=== PATIENT | female | born 1970 | race Caucasian/White ===

== ENCOUNTER 2025-05-08 14:51 | Outpatient (AMB) | payer OTHER, SELFPAY ==
--- NOTE | 2025-05-08 15:09 | A.SPINEOV_ITS ---
Vital Signs 05/08/25 15:21 Height 5 ft 4 in Weight 145 lb BMI 24.9 Intake Visit Reasons: R sciatic pain Intake Note: Ms. Pedro is here today c/o Right sided sciatica pain. Water Pipe Installer Required: No Allergies ciprofloxacin (From Cipro) Allergy (Severe, Verified 05/08/25 15:22) Anaphylaxis acetaminophen (From Percocet) Allergy (Intermediate, Verified 05/08/25 15:22) Rash codeine (Codeine) Allergy (Intermediate, Verified 05/08/25 15:22) VOMITING ibuprofen Allergy (Intermediate, Verified 05/08/25 15:22) Heartburn oxycodone (From Percocet) Allergy (Intermediate, Verified 05/08/25 15:22) Rash Physical Exam Vital Signs: BMI result Body Mass Index 24.9 Assessment & Plan Assessment & Plan (1) Status post lumbar and lumbosacral fusion by anterior technique: Code(s): Z98.1 - Arthrodesis status Category: Surgical Plan Dear colleague, On 05/08/2025 I saw Rabia Le for ongoing bilateral leg pain despite undergoing an anterior lumbar interbody fusion and posterior decompression by Dr. Thurston. For an extensive medical history I refer to the note of LISSA Driscoll of 07/04/2024. This patient developed right leg pain with vibrations and out drop foot. An MRI of the lumbar spine at [facility] was read as having severe right L5 foraminal stenosis and a synovial cyst. She was seen in our office in the MRI was reviewed and it was determined that the mild(not severe) abnormalities could not be the reason for her symptoms. She went on to a 2nd opinion and underwent an anterior lumbar interbody fusion L5-S1 without success. Preoperatively, he already developed symptoms in her left leg with the MRI showing absolutely no abnormalities on the left side. She comes in with a request if there is any additional surgeries to be done for her symptoms to address her increasing bilateral symptoms. A postoperative MRI shows status post L5-S1 ALIF and no signs of nerve compression or central stenosis. I explained to her that I would not have offered any surgical intervention to start with as bilateral leg pain can not be explained from the MRI. There is also no reason to offer more surgery. Clinically, her symptoms sound more like a polyneuropathy. She will return to her neurologist in his scheduled to undergo another EMG. Unfortunately, I can not help the patient. I spent 30 minutes in his consult reviewing imaging and providing my medical opinion. Douglas Rosenthal MD, PhD Spine Fellowship Trained Neurosurgeon Director, [facility] Coding Level of Care Code Est Pt Level 4 (34175) Diagnoses Status post lumbar and lumbosacral fusion by anterior technique Z98.1
[2025-05-08 15:21] VITALS: BMI 24.9
--- OUTSIDE RECORDS SUMMARY | 2025-05-08 16:33 | XMS_ITS | Encounter Summary ---
Author Organization [facility] Address [address] [facility] [address] [place] [address] Phone Care Team Providers Care Food Service Coordinator Name Role Phone Julian Duncan MD Unavailable Champ Coombs MD Unavailable [phone] Nicola Davis MD Primary Care Provid er Keyla Dorsey PA-C Primary Care Provider [phone] Encounter Details Date Type Department Care Team (Late st Contact Info) Description 06/26/2019 Ancillary Orders [facility],Outside [facility] [address] [place] [address] System, Provider Not In, [place] [address] Social History Tobacco Use Types Packs/Day Years Used Date Smoking Tobacco: Never Smokeless Tobacco: Never Alcohol Use Standard Drinks/Week Comments Yes 3 (1 standard drink = 0.6 oz pur e alcohol) the weekends Comments Unknown Sex and Gender Information Value Date Recorded Sex Assigned at Female 12/14/2019 12:18 PM EDT Legal Sex Female 7:17 PM EST Gender Identity Female 12/14/2019 12:18 PM EDT Sexual Orientation Straight 12/14/2019 12 :18 PM EDT documented as of this encounter Plan of Treatment Upcoming Encounters Date Type Department Care Team (Late st Contact Info) Description 05/20/2024 Procedure Pass [facility] - [address] [place] [address] 05/15/2025 1:45 PM EDT Appointment [address] [place] [address] Keyla Dorsey PA-C [address] [place] [address] [email or web address] 06/09/2025 9:30 AM EST Procedure visit [facility] Neurology [address] [place] [address] Gelacio Thurston MD [address] [place] [address] Arnaldo Dasilva MD 22 [facility], 2nd [place] [address] [email or web address] documented as of this encounter Results * XR Lower Extremity Outside (No Interpretation) (09/04/2018 12:00 AM EST) Narrative SYSTEMGENERATED, DOCUMENTATION - 06/26/2019 1:15 PM EST This study is for PACS storage only and not for interpretation. us Provider Not In System PhD IMG OUTSIDE IMAGING W /OUT INTERPRETATION Final Result * XR Lower Extremity Outside (No Interpretation) (10/05/2017 12:00 AM EDT) Narrative SYSTEMGENERATED, DOCUMENTATION - 06/26/2019 1:14 PM EST This study is for PACS storage only and not for interpretation. us Provider Not In System PhD IMG OUTSIDE IMAGING W /OUT INTERPRETATION Final Result documented in this encounter Visit Diagnoses Not on filedocumented in this encounter Additional Health Concerns Infection Onset Date Last Indicated Resolved Time CoV-Risk 07/31/2024 07/31/2024 08/11/2024 1:22 AM EST CoV-Risk 08/27/2024 08/27/2024 09/07/2024 1:21 AM EST documented as of this encounter Care Teams Food Service Coordinator Relationship Specialty Start Date End Date Nicola Davis MD 35 [facility] 1 [place] [phone] PCP - General Pediatrics 10/15/17 05/19/24 Keyla Dorsey PA-C [address] [place] [address] [email or web address] PCP - General Physician Readers' Advisory Service Librarian 05/20/24 Julian Duncan MD [address] [place] [address] [email or web address] Historical LMR Provider 11/27/14 07/23/21 Champ Coombs MD [address] [place] [address] Historical LMR Provider 11/27/14 2 documented as of this encounter Additional Source Comments The information contained in this document represents components of the legal health record. It is not the complete legal health record.[facility]
--- OUTSIDE RECORDS SUMMARY | 2025-05-08 16:33 | XMS_ITS | Encounter Summary ---
Author Organization [facility] Address [address] [place] [address] Phone Care Team Providers Care Capability Lead Name Role Phone Julian Duncan MD Unavailable Champ Coombs MD Unavailable [phone] Nicola Davis MD Primary Care Provid er Keyla Dorsey PA-C Primary Care Provider Encounter Details Date Type Department Care Team (Late st Contact Info) Description 10/14/2020 Procedure Pass OR Admitting Dept - Virtual Department [address] [place] [address] Social History Tobacco Use Types Packs/Day Years Used Date Smoking Tobacco: Never Smokeless Tobacco: Never Alcohol Use Standard Drinks/Week Comments Yes 3 (1 standard drink = 0.6 oz pur e alcohol) the weekends Comments No Sex and Gender Information Value Date Recorded Sex Assigned at Female 12/14/2019 12:18 PM EDT Legal Sex Female 7:17 PM EST Gender Identity Female 12/14/2019 12:18 PM EDT Sexual Orientation Straight 12/14/2019 12 :18 PM EDT documented as of this encounter Functional Status * Calculated C-SSRS Risk Score (Lifetime/Recent) Answer Date of Assessment Author No Risk Indicated 10/16/2020 3:00 PM EDT Jackie Caro RN * [place] Suicide Severity Rating Scale (Screener/Recent Self-Report) Question Answer Date of Assessment Author 1. Wish to be (Past 1 Month) No 021 3:00 PM EDT Jackie Caro, FAYE 2. Non-Specific Active Suici floridalma Thoughts (Past 1 Month) No 10/16/2020 3:00 PM EDT Ashok Caro, FAYE 6. Suicidal Behavior (Lifetime) No 3:00 PM EDT Jackie Caro, FAYE documented as of this encounter Plan of Treatment Upcoming Encounters Date Type Department Care Team (Late st Contact Info) Description 05/20/2024 Procedure Pass [address] [place] [address] 05/15/2025 1:45 PM EDT Appointment [address] [place] [address] Keyla Dorsey PA-C [address] [place] [address] 06/09/2025 9:30 AM EST Procedure visit [facility] Neurology [address] [place] [address] Gelacio Thurston MD [address] [place] [address] Arnaldo Dasilva MD 22 [facility], 2nd [place] [address] documented as of this encounter Visit Diagnoses Not on filedocumented in this encounter Additional Health Concerns Infection Onset Date Last Indicated Resolved Time CoV-Risk 07/31/2024 07/31/2024 08/11/2024 1:22 AM EST CoV-Risk 08/27/2024 08/27/2024 09/07/2024 1:21 AM EST documented as of this encounter Care Teams Capability Lead Relationship Specialty Start Date End Date Nicola Davis MD 35 [facility] [address] [place] [phone] PCP - General Pediatrics 10/15/17 05/19/24 Keyla Dorsey PA-C [address] [place] [address] [email or web address] PCP - General Physician Prawn Trawler Hand 05/20/24 Julian Duncan MD [address] [place] [address] [email or web address] Historical LMR Provider 11/27/14 07/23/21 Champ Coombs MD [address] [place] [address] Historical LMR Provider 11/27/14 2 documented as of this encounter Additional Source Comments The information contained in this document represents components of the legal health record. It is not the complete legal health record.[facility]
--- OUTSIDE RECORDS SUMMARY | 2025-05-08 16:33 | XMS_ITS | Encounter Summary ---
Author Organization [facility] Address [address] [facility] [address] [place] [address] Phone Care Team Providers Care Railroad Brake Repairer Name Role Phone Nicola Davis MD Primary Care Provid er Keyla Dorsey PA-C Primary Care Provider [phone] Encounter Details Date Type Department Care Team (Late st Contact Info) Description 07/30/2023 Procedure Pass OR Admitting Dept - Virtual Department [address] [place] [address] Social History Tobacco Use Types Packs/Day Years Used Date Smoking Tobacco: Never Smokeless Tobacco: Never Alcohol Use Standard Drinks/Week Comments Yes 2 (1 standard drink = 0.6 oz pur e alcohol) the weekends Education Answer Date Recorded Are you interested in more education? Not on rossana e 11/09/2022 Are you concerned about learning? Not on file 11/09/2022 No 11/09/2022 No 11/09/2022 Digital Access Answer Date Recorded No 12/05/2022 No 12/05/2022 Reliable internet access at home? Not on file 12/05/2022 Device with a working camera? Not on file Comments No Sex and Gender Information Value Date Recorded Sex Assigned at Female 12/14/2019 12:18 PM EDT Legal Sex Female 7:17 PM EST Gender Identity Female 12/14/2019 12:18 PM EDT Sexual Orientation Straight 12/14/2019 12 :18 PM EDT documented as of this encounter Plan of Treatment Upcoming Encounters Date Type Department Care Team (Late st Contact Info) Description 05/20/2024 Procedure Pass [address] [place] [address] 05/15/2025 1:45 PM EDT Appointment [address] [place] [address] Keyla Dorsey PA-C 40 [place] [address] 06/09/2025 9:30 AM EST Procedure visit [facility] Neurology [address] [place] [address] Gelacio Thurston MD [address] [place] [address] Arnaldo Dasilva MD [address] [place] [address], 2[address] [place] [address] documented as of this encounter Visit Diagnoses Not on filedocumented in this encounter Additional Health Concerns Infection Onset Date Last Indicated Resolved Time CoV-Risk 07/31/2024 07/31/2024 08/11/2024 1:22 AM EST CoV-Risk 08/27/2024 08/27/2024 09/07/2024 1:21 AM EST documented as of this encounter Care Teams Railroad Brake Repairer Relationship Specialty Start Date End Date Nicola Davis MD 35 [facility] [address] [place] [address] PCP - General Pediatrics 10/15/17 05/19/24 Keyla Dorsey PA-C [address] [place] [address] PCP - General Physician Deep Fat Cook Fry 05/20/24 documented as of this encounter Additional Source Comments The information contained in this document represents components of the legal health record. It is not the complete legal health record.[facility]
--- OUTSIDE RECORDS SUMMARY | 2025-05-08 16:33 | XMS_ITS | Encounter Summary ---
Author Organization [facility] Address [address] [facility] [address] [place] [address] Phone Care Team Providers Care Roll Forger Name Role Phone Julian Duncan MD Unavailable Champ Coombs MD Unavailable [phone] Nicola Davis MD Primary Care Provid er Keyla Dorsey PA-C Primary Care Provider Encounter Details Date Type Department Care Team (Late st Contact Info) Description 02/22/2021 Procedure Pass [facility], Ct Scan [address] [address] Social History Tobacco Use Types Packs/Day Years Used Date Smoking Tobacco: Never Smokeless Tobacco: Never Alcohol Use Standard Drinks/Week Comments Yes 1 (1 standard drink = 0.6 oz pur [...] Contact Info) Description 05/20/2024 Procedure Pass [facility] - [address] [place] [address] 05/15/2025 1:45 PM EDT Appointment [address] [place] [address] Keyla Dorsey PA-C [address] [place] [address] [email or web address] 06/09/2025 9:30 AM EST Procedure visit [facility] Neurology [address] [place] [address] Gelacio Thurston MD [address] [place] [address] Arnaldo Dasilva MD [address] [place] [address], 2[address] [place] [address] [email or web address] documented as of this encounter Visit Diagnoses Not on filedocumented in this encounter Additional Health Concerns Infection Onset Date Last Indicated Resolved Time CoV-Risk 07/31/2024 07/31/2024 08/11/2024 1:22 AM EST CoV-Risk 08/27/2024 08/27/2024 09/07/2024 1:21 AM EST documented as of this encounter Care Teams Roll Forger Relationship Specialty Start Date End Date Nicola Davis MD [address] [phone] PCP - General Pediatrics 10/15/17 05/19/24 Keyla Dorsey PA-C [address] [place] [address] [email or web address] PCP - General Physician Primer Press Operator 05/20/24 Julian Duncan MD [address] [place] [address] [email or web address] Historical LMR Provider 11/27/14 07/23/21 Champ Coombs MD [address] [place] [address] Historical LMR Provider 11/27/14 2 documented as of this encounter Additional Source Comments The information contained in this document represents components of the legal health record. It is not the complete legal health record.[facility]
--- OUTSIDE RECORDS SUMMARY | 2025-05-08 16:33 | XMS_ITS | Encounter Summary ---
Author Organization [facility] Address [address] [facility] [address] [place] [address] Phone Care Team Providers Care Potato Inspector Name Role Phone Julian Duncan MD Unavailable Champ Coombs MD Unavailable [phone] Nicola Davis MD Primary Care Provid er Keyla Dorsey PA-C Primary Care Provider Encounter Details Date Type Department Care Team (Late st Contact Info) Description 10/20/2020 Procedure Pass OR Admitting Dept - Virtual Department [address] [place] [address] Social History Tobacco Use Types Packs/Day Years [...] st Contact Info) Description 05/20/2024 Procedure Pass [facility] - [address] [place] [address] 05/15/2025 1:45 PM EDT Appointment [address] [place] [address] Keyla Dorsey PA-C [address] [place] [address] [email or web address] 06/09/2025 9:30 AM EST Procedure visit [facility] Neurology 22 [place] [address] Gelacio Thurston MD [address] [place] [address] Arnaldo Dasilva MD [address] [place] [address], 2[address] [place] [address] [email or web address] documented as of this encounter Visit Diagnoses Not on filedocumented in this encounter Additional Health Concerns Infection Onset Date Last Indicated Resolved Time CoV-Risk 07/31/2024 07/31/2024 08/11/2024 1:22 AM EST CoV-Risk 08/27/2024 08/27/2024 09/07/2024 1:21 AM EST documented as of this encounter Care Teams Potato Inspector Relationship Specialty Start Date End Date Nicola Davis MD [address] [place] [phone] PCP - General Pediatrics 10/15/17 05/19/24 Keyla Dorsey PA-C [address] [place] [address] [email or web address] PCP - General Physician Wearing Apparel Folder 05/20/24 Julian Duncan MD [address] [place] [address] [email or web address] Historical LMR Provider 11/27/14 07/23/21 Champ Coombs MD [address] [place] [address] Historical LMR Provider 11/27/14 2 documented as of this encounter Additional Source Comments The information contained in this document represents components of the legal health record. It is not the complete legal health record.[facility]
--- OUTSIDE RECORDS SUMMARY | 2025-05-08 16:33 | XMS_ITS | Encounter Summary ---
Author Organization [facility] Address [address] [facility] [address] [place] [address] Phone Care Team Providers Care Billing Auditor Name Role Phone Julian Duncan MD Unavailable Champ Coombs MD Unavailable [phone] Nicola Davis MD Primary Care Provid er Keyla Dorsey PA-C Primary Care Provider Encounter Details Date Type Department Care Team (Late st Contact Info) Description 07/03/2019 Procedure Pass OR Admitting Dept - Virtual Department [address] [place] [address] Social History Tobacco Use Types Packs/Day Years [...] st Contact Info) Description 05/20/2024 Procedure Pass [facility] - [address] [place] [address] 05/15/2025 1:45 PM EDT Appointment [address] [place] [address] Keyla Dorsey PA-C [address] [place] [address] [email or web address] 06/09/2025 9:30 AM EST Procedure visit [facility] Neurology 22 [place] [address] Gelacio Thurston MD [address] [place] [address] Arnaldo Dasilva MD [address] [place] [address], 2nd [place] [address] [email or web address] documented as of this encounter Visit Diagnoses Not on filedocumented in this encounter Additional Health Concerns Infection Onset Date Last Indicated Resolved Time CoV-Risk 07/31/2024 07/31/2024 08/11/2024 1:22 AM EST CoV-Risk 08/27/2024 08/27/2024 09/07/2024 1:21 AM EST documented as of this encounter Care Teams Billing Auditor Relationship Specialty Start Date End Date Nicola Davis MD [address] [place] [phone] PCP - General Pediatrics 10/15/17 05/19/24 Keyla Dorsey PA-C 40 [place] [address] [email or web address] PCP - General Physician Form Setter 05/20/24 Julian Duncan MD [address] [place] [address] [email or web address] Historical LMR Provider 11/27/14 07/23/21 Champ Coombs MD [address] [place] [address] Historical LMR Provider 11/27/14 2 documented as of this encounter Additional Source Comments The information contained in this document represents components of the legal health record. It is not the complete legal health record.[facility]
--- OUTSIDE RECORDS SUMMARY | 2025-05-08 16:33 | XMS_ITS | Encounter Summary ---
Author Organization [facility] Address [address] [facility] [address] [place] [address] Phone Care Team Providers Care Physician Surgeon Name Role Phone Nicola Davis MD Primary Care Provid er Keyla Dosrey PA-C Primary Care Provider [phone] Encounter Details Date Type Department Care Team (Late st Contact Info) Description 07/27/2022 Procedure Pass [facility] [address] [place] [address] Social History Tobacco Use Types Packs/Day Years [...] st Contact Info) Description 05/20/2024 Procedure Pass [address] [place] [address] 05/15/2025 1:45 PM EDT Appointment [address] [place] [address] Keyla Dorsey PA-C [address] [place] [address] 06/09/2025 9:30 AM EST Procedure visit [facility] Neurology [address] [place] [address] Gelacio Thurston MD [address] [place] [address] Arnaldo Dasilva MD 22 [facility], [address] [place] [address] documented as of this encounter Visit Diagnoses Not on filedocumented in this encounter Additional Health Concerns Infection Onset Date Last Indicated Resolved Time CoV-Risk 07/31/2024 07/31/2024 08/11/2024 1:22 AM EST CoV-Risk 08/27/2024 08/27/2024 09/07/2024 1:21 AM EST documented as of this encounter Care Teams Physician Surgeon Relationship Specialty Start Date End Date Nicola Davis MD 35 [facility] [address] [place] [phone] PCP - General Pediatrics 10/15/17 05/19/24 Keyla Dorsey PA-C 40 [place] [address] PCP - General Physician Benefits Sales Consultant 05/20/24 documented as of this encounter Additional Source Comments The information contained in this document represents components of the legal health record. It is not the complete legal health record.[facility]
--- OUTSIDE RECORDS SUMMARY | 2025-05-08 16:33 | XMS_ITS | Encounter Summary ---
Author Organization [facility] Address [address] [facility] [address] [place] [address] Phone Care Team Providers Care Global Ceo Name Role Phone Nicola Davis MD Primary Care Provid er Keyla Dorsey PA-C Primary Care Provider [phone] Encounter Details Date Type Department Care Team (Late st Contact Info) Description 12/07/2021 Ancillary Orders [facility] Department of Orthopaedic Surgery, Sports Medicine Service [address] [facility] 4th [place] [address] Kenneth Love MD [address] [facility] [address] [place] [address] [email or web address] Pain of both shoulder joints Social History Tobacco Use Types Packs/Day Years [...] st Contact Info) Description 05/20/2024 Procedure Pass [facility] - [address] [place] [address] 05/15/2025 1:45 PM EDT Appointment [facility] - [address] [place] [address] Keyla Dorsey PA-C [address] [place] [address] 06/09/2025 9:30 AM EST Procedure visit [facility] Neurology [address] [place] [address] Gelacio Thurston MD [address] [place] [address] Arnaldo Dasilva MD [address] [facility], 2nd [place] [address] [email or web address] documented as of this encounter Results * XR SHOULDER 2 VIEWS (LEFT) (12/07/2021 12:16 PM EDT) Anatomical Region Laterality Modality Shoulder Left Digital Radiogra phy 12/07/2021 2:43 PM EDT Impressions 12/07/2021 2:45 PM EDT 1. Left shoulder: Preserved cartilage space. 2. Right shoulder: Reverse total shoulder arthroplasty, no complication. Narrative 12/07/2021 2:45 PM EDT XR SHOULDER 2 OR MORE VIEWS (RIGHT), XR SHOULDER 2 OR MORE VIEWS (LEFT) COMPARISON: XR SHOULDER 2 OR MORE VIEWS (RIGHT) FINDINGS: Left shoulder: No fracture. Normal glenohumeral alignment and joint space. Normal acromioclavicular joint. Right shoulder: Reverse total shoulder arthroplasty. Hardware is intact and in anatomic position. No periprosthetic lucency or fracture. Normal acromioclavicular joint. Procedure Note Dylan-Kaylee Johnson MD - 12/07/2021 XR SHOULDER 2 OR MORE VIEWS (RIGHT), XR SHOULDER 2 OR MORE VIEWS (LEFT) COMPARISON: XR SHOULDER 2 OR MORE VIEWS (RIGHT) FINDINGS: Left shoulder: No fracture. Normal glenohumeral alignment and joint space.Normal acromioclavicular joint. Right shoulder: Reverse total shoulder arthroplasty. Hardware is intactand in anatomic position. No periprosthetic lucency or fracture. Normalacromioclavicular joint. IMPRESSION: 1. Left shoulder: Preserved cartilage space. 2. Right shoulder: Reverse total shoulder arthroplasty, no complication. Kenneth Love MD IMG XR UPPER EXTREMITY Final Result * XR SHOULDER 2 VIEWS (RIGHT) (12/07/2021 12:15 PM EDT) Anatomical Region Laterality Modality Shoulder Right Digital Radiogra phy 12/07/2021 2:43 PM EDT Impressions 12/07/2021 2:45 PM EDT 1. Left shoulder: Preserved cartilage space. 2. Right shoulder: Reverse total shoulder arthroplasty, no complication. Narrative 12/07/2021 2:45 PM EDT XR SHOULDER 2 OR MORE VIEWS (RIGHT), XR SHOULDER 2 OR MORE VIEWS (LEFT) COMPARISON: XR SHOULDER 2 OR MORE VIEWS (RIGHT) FINDINGS: Left shoulder: No fracture. Normal glenohumeral alignment and joint space. Normal acromioclavicular joint. Right shoulder: Reverse total shoulder arthroplasty. Hardware is intact and in anatomic position. No periprosthetic lucency or fracture. Normal acromioclavicular joint. Procedure Note Kaylee Frye MD - 12/07/2021 XR SHOULDER 2 OR MORE VIEWS (RIGHT), XR SHOULDER 2 OR MORE VIEWS (LEFT) COMPARISON: XR SHOULDER 2 OR MORE VIEWS (RIGHT) FINDINGS: Left shoulder: No fracture. Normal glenohumeral alignment and joint space.Normal acromioclavicular joint. Right shoulder: Reverse total shoulder arthroplasty. Hardware is intactand in anatomic position. No periprosthetic lucency or fracture. Normalacromioclavicular joint. IMPRESSION: 1. Left shoulder: Preserved cartilage space. 2. Right shoulder: Reverse total shoulder arthroplasty, no complication. Kenneth Love MD IMG XR UPPER EXTREMITY Final Result documented in this encounter Visit Diagnoses Diagnosis Pain of both shoulder joints Pain of both shoulder joints Pain of both shoulder joints documented in this encounter Additional Health Concerns Infection Onset Date Last Indicated Resolved Time CoV-Risk 07/31/2024 07/31/2024 08/11/2024 1:22 AM EST CoV-Risk 08/27/2024 08/27/2024 09/07/2024 1:21 AM EST documented as of this encounter Care Teams Global Ceo Relationship Specialty Start Date End Date Nicola Davis MD [address] [place] [phone] PCP - General Pediatrics 10/15/17 05/19/24 Keyla Dorsey PA-C [address] [place] [address] [email or web address] PCP - General Physician Block Tester 05/20/24 documented as of this encounter Additional Source Comments The information contained in this document represents components of the legal health record. It is not the complete legal health record.[facility]
--- OUTSIDE RECORDS SUMMARY | 2025-05-08 16:33 | XMS_ITS | Encounter Summary ---
Author Organization [facility] Address [address] [facility] [address] [place] [address] Phone Care Team Providers Care Sr. Manager Marketing Name Role Phone Julian Duncan MD Unavailable Champ Coombs MD Unavailable [phone] Nicola Davis MD Primary Care Provid er Keyla Dorsey PA-C Primary Care Provider Encounter Details Date Type Department Care Team (Late Contact Info) Description 05/31/2021 Procedure Pass [facility] PERIOPERATIVE DEPT [address] [place] [phone] Social History Tobacco Use Types Packs/Day Years [...] Encounters Date Type Department Care Team (Late Contact Info) Description 05/20/2024 Procedure Pass [address] [place] [address] 05/15/2025 1:45 PM EDT Appointment [address] [place] [address] Keyla Dorsey PA-C [address] [place] [address] [email or web address] 06/09/2025 9:30 AM EST Procedure visit [facility] Neurology [address] [place] [address] Gelacio Thurston MD [address] [place] [address] Arnaldo Dasilva MD [address] [place] [address], 2nd [place] [address] [email or web address] documented as of this encounter Visit Diagnoses Not on filedocumented in this encounter Additional Health Concerns Infection Onset Date Last Indicated Resolved Time CoV-Risk 07/31/2024 07/31/2024 08/11/2024 1:22 AM EST CoV-Risk 08/27/2024 08/27/2024 09/07/2024 1:21 AM EST documented as of this encounter Care Teams Sr. Manager Marketing Relationship Specialty Start Date End Date Nicola Davis MD [address] [place] [phone] PCP - General Pediatrics 10/15/17 05/19/24 Keyla Dorsey PA-C [address] [place] [address] [email or web address] PCP - General Physician Radiation Protection Specialist 05/20/24 Julian Duncan MD [address] [place] [phone] [email or web address] Historical LMR Provider 11/27/14 07/23/21 Champ Coombs MD [address] [place] [address] Historical LMR Provider 11/27/14 2 documented as of this encounter Additional Source Comments The information contained in this document represents components of the legal health record. It is not the complete legal health record.[facility]
--- OUTSIDE RECORDS SUMMARY | 2025-05-08 16:34 | XMS_ITS | Patient Health Record ---
Author Organization [facility] Address [address] [place] [address] Care Team Providers Care Remote Inpatient Coder Name Role Phone Nicola Davis MD Primary Care Provider Unava Bev Watson Unavailable [phone] Allergies Allergen (clinical drug ingredient) Drug/Non Drug Allergy documented on EMR Reaction Allergy Type Onset Date Status ciprofloxacin / dexamethasone Ciprofloxacin-Dexa methasone Insomnia Drug Allergy Active codeine Codeine nausea and vomiting Drug Allergy Active Reason For Referral No Information Medications Medication SIG (Take, Route, Frequency, Duration) Notes Start Date End Date Status Bactrim DS 800-160 MG 1 tablet Orally ev noel 12 hrs; Duration: 10 day(s) 02/12/2018 Not-Gold ing Medrol 4 MG as directed Orally 02/18/2019 Not-Taking Keflex 500 MG 1 capsule Orally anival ry 12 hrs; Duration: 7 days 08/01/2018 Not-Taking Medrol 4 MG as directed Orally 08/01/2018 Not-Taking Ibuprofen 800 MG 1 tablet Orally BID; Duration: 30 day(s) 01/02/2017 Active Amoxicillin Not-Taki ng Levoxyl 137 MCG 1 tablet on an empty stomach in the morning Orally Once a day Not-Taking Gabapentin 300 MG 1 capsule Orally Thr ee times a day; Duration: 10 days 01/02/2017 Not-Taking Naprosyn 500 MG 1 tablet with food o r milk as needed Orally every 12 hrs; Duration: 30 days 05/28/2017 Not-Taking GLOVE CUTTER Thyroid Active Tylenol 325 MG 2 capsules as needed Orally every 12 hrs; Duration: 7 days 01/02/2017 Not-Taking Morphine Sulfate 15 MG 1 tablet as neede d Orally every 4 hrs; Duration: as needed 01/23/2018 Not-Taking Multivitamin Active Prednisone Not-Takin g Motrin 800 Active Amoxicillin Not-Taki ng Social History Tobacco Use: Social History Observation Description Date Details (start date - stop date) Never Smoker NA - NA Tobacco Use/Smoking Question Answer Notes Are you a: nonsmoker Alcohol Screen Question Answer Notes Did you have a drink contain ing alcohol in the past year? Yes How often did you have a dri nk containing alcohol in the past year? 4 or more times a week (4 points) How many drinks did you have on a typical day when you were drinking in the past year? 1 or 2 drinks (0 point) How often did you have 6 or more drinks on one occasion in the past year? Daily or almost daily (4 points) Points 8 Interpretation Positive Tobacco use other than smoking: Question Answer Notes Are you an other tobacco user? No Problems Problem Type SNOMED Code ICD Code Onset Dates Problem Status W/U Status Risk Notes Problem Plantar wart (42576500) Plantar wart (B07.0) Active confirmed Problem Joint pain (60025844) Joint pain (M25.50) Active confirmed Problem Arthritis (9656164) Arthritis (M19.90) Active confirmed Problem Acquired right hallu x rigidus (566201424985025) Hallux limitus of right foot (M20.5X1) Active confirmed Problem Swelling of first metatarsophalangeal joint of hallux (665071189) Bunion of right foot (M21.611) Active confirmed Problem Gouty arthritis of right foot (5250099822608433) Gouty arthritis of right foot (M10.9) Active confirmed Encounters Encounter Location Date Provider Diagnosis [facility] [address] [place] [address] 05/01/2025 Bev Ramos Plan Of Treatment Pending Test Test Name Order Date X ray : Foot, right 2V 02/15/2018 *Uric Acid, Serum 08/01/2018 C-Reactive Protein, Quant 08/01/2018 CBC 08/01/2018 ESR 08/01/2018 X ray : Foot, right 3V 02/18/2019 X ray : Foot, right 3V 03/26/2019 X ray : Foot, right 3V 08/01/2018 X ray : Foot, right 3V 02/05/2018 X ray : Foot, right 3V 02/12/2018 29215, [id number]/INJECT, JOINT/BURSA 1 07/28/2016 91946, [id number]/INJECT, JOINT/BURSA 0 09/18/2017 X ray : Ankle, right 3V 02/18/2019 Next Appt Details Provider Name:Bev funk, 07/22/2025 09:30:00 AM, [address] [place] [address], [phone], Insurance Providers Payer Name Payer Address Payer Phone Subscriber Number Group Number Insured Name Patient Relationship to Insured Coverage Start Date Coverage End Date [facility] ([facility]) [address] [place] [address] [phone] Rabia Pedro Self - patient is the insured Medical (General) History Medical History History ICD Code asthma chronic sinusitis Chicken pox Joint implants/screws Warts Surgical History Surgery Date(Month/Year) knee replacement 05/2016 Gomez R 01/24/17 Right 1st MPJ Implant Athrosurface Shoulder Replacement 06/09/21 Hospitalization History Reason Date(Month/Year) Bad reaction to allergy test ing, asthma reaction; gave two epi pens and steroids 06/25/2017
--- OUTSIDE RECORDS SUMMARY | 2025-05-08 16:34 | XMS_ITS | Clinical Summary ---
Author Organization [facility] Address [address] [place] [address] Care Team Providers Care Lpn Name Role Phone Nicola Davis Primary Care Provider [phone] Allergies No known active allergies Medications thyroid (ARMOUR THYROID) 30 mg tablet Take 30 mg by mouth once a day. Use as directed Active predniSONE (DELTASONE) 10 mg tablet Take 10 mg by mouth once a day. Active Active Problems Problem Noted Date Diagnosed Date Acquired hallux rigidus of right foot 05/01/2022 Arthritis 05/01/2022 Chronic sinusitis 05/01/2022 Eosinophilic esophagitis 05/01/2022 Gouty arthritis of right foot 05/01/2022 Joint pain 05/01/2022 Plantar wart 05/01/2022 Swelling of first metatarsophalangeal (MTP) join t 05/01/2022 Rotator cuff tear 05/31/2021 Thrombocytopenia 10/17/2020 Overview (05/01/2022): Last Assessment & Plan: Transient thrombocytopenia, resolved --Plan surveillance Asthma 10/16/2020 Hypothyroidism 10/16/2020 Overview (05/01/2022): Last Assessment & Plan: -continue LACQUER COATER thyroid Status post total shoulder arthroplasty, right 0 03/17/2020 Acute medial meniscus tear of right knee 019 Right shoulder pain 03/03/2019 Overview (05/01/2022): Last Assessment & Plan: -s/p right rotator cuff revision with Dr. Thurman on 10/14/2020 (Had total right shoulder arthroplasty 01/2020) --PT/OT Left knee pain 01/30/2013 Overview (05/01/2022): Last Assessment & Plan: Complex orthopedic history with multiple prior surgeries on L knee including a total knee replacement in 2013. She presented to the ED with acute pain and swelling of the knee after rotator cuff surgery on 10/14 Fluid aspirate demonstrated 20,598 nucleated cells, neutrophil predominance. No crystals She was placed on broad-spectrum antibiotics out of concern for possible septic arthritis. Cultures at this point remain negative and she is improving clinically pointing away from this being a septic arthritis. Antibiotics were stopped on 10/18 --Findings reviewed with Dr. Estrella --We will plan to observe another night in the hospital off antibiotics and likely home tomorrow if continued improved --Repeat ESR in AM Knee pain Immunizations Immunization Administration Dates Next Due Mumps Virus Vaccine 05/19/2004 Rubella Virus Vaccine 05/19/2004 Td(Adult) Unspecified Formulation 10/21/2007 Social History Tobacco Use Types Packs/Day Years Used Date Smoking Tobacco: Never Smokeless Tobacco: Never Tobacco Cessation:Counseling Given: Not Answered Alcohol Use Standard Drinks/Week Comments Yes 0 (1 standard drink = 0.6 oz pur e alcohol) Comments Unknown Sex and Gender Information Value Date Recorded Sex Assigned at Not on file Legal Sex Female 12:02 AM EDT Gender Identity Not on file Sexual Orientation Not on file Last Filed Vital Signs Vital Sign Reading Time Taken Comments Blood Pressure 139/65 05/01/2022 8:20 AM EDT Pulse 69 05/01/2022 8:20 AM EDT Temperature 36.7 C (98.1 F) 05/01/2022 8:20 AM EDT Respiratory Rate - - Oxygen Saturation - - Inhaled Oxygen Concentration - - Weight 67.1 kg (148 lb) 05/01/2022 8:20 AM EDT Height 162.6 cm (5' 4 ) 05/01/2022 8:20 AM EDT Body Mass Index 25.4 05/01/2022 8:20 AM EDT Plan of Treatment Health Maintenance Due Date Last Done Comments Cervical Cancer Screening 1968 Cologuard 1968 Colon Cancer Screening 1968 Colonoscopy 1968 FOBT / Fit Test 1968 HIV Screening 1968 HPV and Pap Smear 1968 Hepatitis C Screening 1968 Pap Smear 1968 Sigmoidoscopy 1968 Hepatitis B Vaccines (1 of 3 - 19+ 3-dose series) 09/13 Pneumococcal Vaccine: 50+ Years (1 of 2 - PCV) 988 DTaP,Tdap,and Td Vaccines (1 - Tdap) 10/22/200701/2008 Mammogram 2008 Zoster Vaccines (1 of 2) 2018 Alcohol/Substance Use Screening 07/16/2024 Depression Screening and Follow-Up 07/16/2024 Social Drivers of Health Annual Screening 07/16/2024 Influenza Vaccine (#1) 2025 RSV Vaccine (60+ years old a nd patients) (1 - 1-dose 75+ series) 09/26/[address] [place] [address] [place] [address] HMO/POS Care Teams Lpn Relationship Specialty Start Date End Date Nicola Davis [address] [place] [phone] PCP - General Family Medicine 02/16/22
--- OUTSIDE RECORDS SUMMARY | 2025-05-08 16:34 | XMS_ITS | Encounter Summary ---
Author Organization [facility] Address [address] [facility] [address] [place] [address] Phone Care Team Providers Care Puncher And Fastener Name Role Phone Nicola Davis MD Primary Care Provid er Keyla Dorsey PA-C Primary Care Provider [phone] Encounter Details Date Type Department Care Team (Late st Contact Info) Description 11/09/2022 Procedure Pass MRI, [facility] - [address], [address] [place], [place] [id number] Social History Tobacco Use Types Packs/Day Years Used Date Smoking Tobacco: Never Smokeless Tobacco: Never Alcohol Use Standard Drinks/Week Comments Yes 2 (1 standard drink = 0.6 oz pur e alcohol) the weekends Education Answer Date Recorded Are you interested in more education? Not on rossana e 11/09/2022 Are you concerned about learning? Not on file 11/09/2022 No 11/09/2022 No 11/09/2022 Comments No Sex and Gender Information Value Date Recorded Sex Assigned at Female 12/14/2019 12:18 PM EDT Legal Sex Female 7:17 PM EST Gender Identity Female 12/14/2019 12:18 PM EDT Sexual Orientation Straight 12/14/2019 12 :18 PM EDT documented as of this encounter Plan of Treatment Upcoming Encounters Date Type Department Care Team (Late st Contact Info) Description 05/20/2024 Procedure Pass [facility] - [address] [place] [address] 05/15/2025 1:45 PM EDT Appointment [facility] - [address] [place] [address] Keyla Dorsey PA-C [address] [place] [address] 06/09/2025 9:30 AM EST Procedure visit [facility] Neurology [address] [place] [address] Gelacio Thurston MD [address] [place] [phone] Arnaldo Dasilva MD [address] [facility], 2nd [place] [address] documented as of this encounter Visit Diagnoses Not on filedocumented in this encounter Additional Health Concerns Infection Onset Date Last Indicated Resolved Time CoV-Risk 07/31/2024 07/31/2024 08/11/2024 1:22 AM EST CoV-Risk 08/27/2024 08/27/2024 09/07/2024 1:21 AM EST documented as of this encounter Care Teams Puncher And Fastener Relationship Specialty Start Date End Date Nicola Davis MD [address] [place] [address] [phone] PCP - General Pediatrics 10/15/17 05/19/24 Keyla Dorsey PA-C [address] [place] [address] PCP - General Physician Link Trainer Mechanic 05/20/24 documented as of this encounter Additional Source Comments The information contained in this document represents components of the legal health record. It is not the complete legal health record.[facility]
--- OUTSIDE RECORDS SUMMARY | 2025-05-08 16:34 | XMS_ITS | Encounter Summary ---
Author Organization [facility] Address [address] [facility] [address] [place] [address] Phone Care Team Providers Care Income Tax Advisor Name Role Phone Nicola Davis MD Primary Care Provid er Keyla Dorsey PA-C Primary Care Provider [phone] Encounter Details Date Type Department Care Team (Late st Contact Info) Description 06/14/[address] - [address], [address] [place] [id number] Social History Tobacco Use Types Packs/Day Years [...] st Contact Info) Description 05/20/2024 Procedure Pass [address] [place] [address] 05/15/2025 1:45 PM EDT Appointment [address] [place] [address] Keyla Dorsey PA-C [address] [place] [address] 06/09/2025 9:30 AM EST Procedure visit [facility] Neurology [address] [place] [address] Gelacio Thurston MD [address] [place] [address] Arnaldo Dasilva MD [address] [facility], 2nd [place] [address] documented as of this encounter Visit Diagnoses Not on filedocumented in this encounter Additional Health Concerns Infection Onset Date Last Indicated Resolved Time CoV-Risk 07/31/2024 07/31/2024 08/11/2024 1:22 AM EST CoV-Risk 08/27/2024 08/27/2024 09/07/2024 1:21 AM EST documented as of this encounter Care Teams Income Tax Advisor Relationship Specialty Start Date End Date Nicola Davis MD [address] [place] [address] [phone] PCP - General Pediatrics 10/15/17 05/19/24 Keyla Dorsey PA-C [address] [place] [address] PCP - General Physician Heat Plant Specialist 05/20/24 documented as of this encounter Additional Source Comments The information contained in this document represents components of the legal health record. It is not the complete legal health record.[facility]
--- OUTSIDE RECORDS SUMMARY | 2025-05-08 16:34 | XMS_ITS | Encounter Summary ---
Author Organization [facility] Address [address] [employer] [address] [place] [address] Phone Care Team Providers Care Transit Driver Name Role Phone Nicola Davis MD Primary Care Provid er Keyla Dorsey PA-C Primary Care Provider [phone] Encounter Details Date Type Department Care Team (Late st Contact Info) Description 12/22/2022 Procedure Pass [facility] PERIOPERATIVE DEPT [address] [place] [address] Social History Tobacco Use Types Packs/Day Years [...] Date of Assessment Author No Risk Indicated 12/22/2022 5:00 PM EDT Winnie Soliz RN * [place] Suicide Severity Rating Scale (Screener/Recent Self-Report) Question Answer Date of Assessment Author 1. Wish to be (Past 1 Month) No 12/22/2022 5:00 PM EDT Winnie Soliz RN 2. Non-Specific Active Suici floridalma Thoughts (Past 1 Month) No 12/22/2022 5:00 PM EDT Al Soliz RN 6. Suicidal Behavior (Lifetime) No 5:00 PM EDT Winnie Soliz RN documented as of this encounter Plan of Treatment Upcoming Encounters Date Type Department Care Team (Late st Contact Info) Description 05/20/2024 Procedure Pass [address] [place] [address] 05/15/2025 1:45 PM EDT Appointment [address] [place] [address] Keyla Dorsey PA-C [address] [place] [phone] [email or web address] 06/09/2025 9:30 AM EST Procedure visit [facility] Neurology [address] [place] [address] [place] [address] Gelacio Thurston MD [address] [place] [address] Arnaldo Dasilva MD [address] [place] [address], 2nd [place] [address] [email or web address] documented as of this encounter Visit Diagnoses Not on filedocumented in this encounter Additional Health Concerns Infection Onset Date Last Indicated Resolved Time CoV-Risk 07/31/2024 07/31/2024 08/11/2024 1:22 AM EST CoV-Risk 08/27/2024 08/27/2024 09/07/2024 1:21 AM EST documented as of this encounter Care Teams Transit Driver Relationship Specialty Start Date End Date Nicola Davis MD [address] [place] [phone] PCP - General Pediatrics 10/15/17 05/19/24 Keyla Dorsey PA-C [address] [place] [address] [email or web address] PCP - General Physician Extension Forester 05/20/24 documented as of this encounter Additional Source Comments The information contained in this document represents components of the legal health record. It is not the complete legal health record.[facility]
--- OUTSIDE RECORDS SUMMARY | 2025-05-08 16:34 | XMS_ITS | Encounter Summary ---
Author Organization [facility] Address [address] [facility] [address] [place] [address] Phone Care Team Providers Care Accountant Certified Public Name Role Phone Nicola Davis MD Primary Care Provid er Keyla Dorsey PA-C Primary Care Provider [phone] Encounter Details Date Type Department Care Team (Late st Contact Info) Description 09/15/2022 Transcribe Orders [facility] Outpatient Care, Radio Flouroscopy [address] [place] [address] Ayla Champagne [address] [place] [address] [email or web address] Social History Tobacco Use Types Packs/Day Years [...] st Contact Info) Description 05/20/2024 Procedure Pass [address] [place] [address] 05/15/2025 1:45 PM EDT Appointment [facility] - [address] [place] [address] Keyla Dorsey PA-C 40 [place] [address] 06/09/2025 9:30 AM EST Procedure visit [facility] Neurology [address] [place] [address] Gelacio Thurston MD [address] [place] [address] Arnaldo Dasilva MD 22 [facility], 2nd [place] [address] documented as of this encounter Visit Diagnoses Not on filedocumented in this encounter Additional Health Concerns Infection Onset Date Last Indicated Resolved Time CoV-Risk 07/31/2024 07/31/2024 08/11/2024 1:22 AM EST CoV-Risk 08/27/2024 08/27/2024 09/07/2024 1:21 AM EST documented as of this encounter Care Teams Accountant Certified Public Relationship Specialty Start Date End Date Nicola Davis MD [address] [phone] PCP - General Pediatrics 10/15/17 05/19/24 Keyla Dorsey PA-C 40 [place] [address] PCP - General Physician Patient Services Rep 05/20/24 documented as of this encounter Additional Source Comments The information contained in this document represents components of the legal health record. It is not the complete legal health record.[facility]
--- OUTSIDE RECORDS SUMMARY | 2025-05-08 16:34 | XMS_ITS | Encounter Summary ---
Author Organization [facility] Address [email or web address] [place] [address] [place] [address] Phone Care Team Providers Care Remnant Sorter Name Role Phone Julian Duncan MD Unavailable Champ Coombs MD Unavailable [phone] Nicola Davis MD Primary Care Provid er Keyla Dorsey PA-C Primary Care Provider Encounter Details Date Type Department Care Team (Late st Contact Info) Description 10/07/2020 Procedure Pass [facility], [facility] - [address] [address] Social History Tobacco Use Types Packs/Day Years [...] st Contact Info) Description 05/20/2024 Procedure Pass [facility] - [address] [place] [address] 05/15/2025 1:45 PM EDT Appointment [address] [place] [address] Keyla Dorsey PA-C 40 [place] [address] [email or web address] 06/09/2025 9:30 AM EST Procedure visit [facility] Neurology [address] [place] [address] Gelacio Thurston MD [address] [place] [address] Arnaldo Dasilva MD [address] [place] [address], 2nd [place] [address] [email or web address] documented as of this encounter Visit Diagnoses Not on filedocumented in this encounter Additional Health Concerns Infection Onset Date Last Indicated Resolved Time CoV-Risk 07/31/2024 07/31/2024 08/11/2024 1:22 AM EST CoV-Risk 08/27/2024 08/27/2024 09/07/2024 1:21 AM EST documented as of this encounter Care Teams Remnant Sorter Relationship Specialty Start Date End Date Nicola Davis MD [address] [place] [phone] PCP - General Pediatrics 10/15/17 05/19/24 Keyla Dorsey PA-C 40 [place] [address] [email or web address] PCP - General Physician Slitter Operator 05/20/24 Julian Duncan MD [address] [place] [phone] [email or web address] Historical LMR Provider 11/27/14 07/23/21 Champ Coombs MD [address] [place] [address] Historical LMR Provider 11/27/14 2 documented as of this encounter Additional Source Comments The information contained in this document represents components of the legal health record. It is not the complete legal health record.[facility]
--- OUTSIDE RECORDS SUMMARY | 2025-05-08 16:34 | XMS_ITS | Encounter Summary ---
Author Organization [facility] Address [address] [facility] [address] [place] [address] Phone Care Team Providers Care Yarn Hauler Name Role Phone Julian Duncan MD Unavailable Champ Coombs MD Unavailable [phone] Nicola Davis MD Primary Care Provid er Keyla Dorsey PA-C Primary Care Provider [phone] Encounter Details Date Type Department Care Team (Late Contact Info) Description 12/16/2019 Ancillary Orders [facility] Orthopedics & Sports Medicine [address] [place] [phone] Papi Thurman DO [address] [place] [address] Orthopedics & Sports Medicine, [facility] [place] [address] [email or web address] Social History Tobacco Use Types Packs/Day Years [...] (Late Contact Info) Description 05/20/2024 Procedure Pass [address] [place] [address] 05/15/2025 1:45 PM EDT Appointment [address] [place] [address] Keyla Dorsey PA-C 40 [place] [address] 06/09/2025 9:30 AM EST Procedure visit [facility] Neurology [address] [place] [address] [place] [address] Gelacio Thurston MD [address] [place] [address] Arnaldo Dasilva MD [address] [place] [address], [address] [place] [address] documented as of this encounter Visit Diagnoses Not on filedocumented in this encounter Additional Health Concerns Infection Onset Date Last Indicated Resolved Time CoV-Risk 07/31/2024 07/31/2024 08/11/2024 1:22 AM EST CoV-Risk 08/27/2024 08/27/2024 09/07/2024 1:21 AM EST documented as of this encounter Care Teams Yarn Hauler Relationship Specialty Start Date End Date Nicola Davis MD 35 [facility] [address] [place] [phone] PCP - General Pediatrics 10/15/17 05/19/24 Keyla Dorsey PA-C 40 [place] [address] PCP - General Physician Environmental Control Administrator 05/20/24 Julian Duncan MD [address] [place] [phone] [email or web address] Historical LMR Provider 11/27/14 07/23/21 Champ Coombs MD [address] [place] [address] Historical LMR Provider 11/27/14 2 documented as of this encounter Additional Source Comments The information contained in this document represents components of the legal health record. It is not the complete legal health record.[facility]
--- OUTSIDE RECORDS SUMMARY | 2025-05-08 16:34 | XMS_ITS | Encounter Summary ---
Author Organization [facility] Address [address] [place] [address] Phone Care Team Providers Care Aerial Tram Operator Name Role Phone Nicola Davis MD Primary Care Provid er Keyla Dorsey PA-C Primary Care Provider [phone] Encounter Details Date Type Department Care Team (Late st Contact Info) Description 05/10/2023 Procedure Pass [facility], [address] [place] [address] Social History Tobacco Use Types Packs/Day Years [...] Contact Info) Description 05/20/2024 Procedure Pass [address] [place] [address] 05/15/2025 1:45 PM EDT Appointment [address] [place] [address] Keyla Dorsey PA-C 40 [place] [address] 06/09/2025 9:30 AM EST Procedure visit [facility] Neurology [address] [place] [address] Gelacio Thurston MD [address] [place] [address] Arnaldo Dasilva MD [address] [place] [address], [address] [place] [address] documented as of this encounter Visit Diagnoses Not on filedocumented in this encounter Additional Health Concerns Infection Onset Date Last Indicated Resolved Time CoV-Risk 07/31/2024 07/31/2024 08/11/2024 1:22 AM EST CoV-Risk 08/27/2024 08/27/2024 09/07/2024 1:21 AM EST documented as of this encounter Care Teams Aerial Tram Operator Relationship Specialty Start Date End Date Nicola Davis MD 35 [facility] [address] [place] [address] PCP - General Pediatrics 10/15/17 05/19/24 Keyla Dorsey PA-C 40 [place] [address] PCP - General Physician Box Estimator 05/20/24 documented as of this encounter Additional Source Comments The information contained in this document represents components of the legal health record. It is not the complete legal health record.[facility]
--- OUTSIDE RECORDS SUMMARY | 2025-05-08 16:34 | XMS_ITS ---
Author Name [facility] Organization Unknown Encounters Encounter Type Encounter Reason Primary Diagnosis Location Date Emergency Other chest pain [facility]25[facility]2023 Care Team Organization Name Specialty Phone Email Start Date End [facility] te [facility] 08/05/2023 [facility] Primary [facility] 0 02/25/2023 02/25/2023 [facility] 02/25/2023
--- OUTSIDE RECORDS SUMMARY | 2025-05-08 16:34 | XMS_ITS | Clinical Summary ---
Author Organization [facility] Address [address] [place] [address] Care Team Providers Care Greige Goods Marker Name Role Phone Nicola Davis MD Primary Care Provider [phone] Surgical History Surgery Date Site/Laterality Comments JOINT REPLACEMENT PROCEDURE:JOINT REPLACEMENT Medical History Medical History Date Comments Asthma DX:Asthma Thyroid disorder DX:Thyroid diso rder Osteoporosis DX:Osteoporosis Social History Tobacco Use Types Packs/Day Years Used Date Smoking Tobacco: Unknown Comments Unknown Sex and Gender Information Value Date Recorded Sex Assigned at Not on file Legal Sex Female 3:48 AM EST Gender Identity Not on file Sexual Orientation Not on file Obstetrics History Plan of Treatment Health Maintenance Due Date Last Done Comments Breast Cancer Screening 1968 Colorectal Cancer Screening: Colonoscopy 1968 DTaP,Tdap,and Td Vaccines (1 - Tdap) 09/26/1987 Hepatitis B Vaccines (1 of 3 - 19+ 3-dose series) 09/26/1987 Cervical Cancer Screening: P ap Smear 1989 Pneumococcal Vaccine: 50+ Ye ars (1 of 1 - PCV) 2018 Zoster Vaccines (1 of 2) 2018 HIV Screening 06/18/2022 Hepatitis C Screening 06/18/2022 Social Influencers of Health Screening 06/18/2022 Depression Screening 07/16/2024 COVID-19 Vaccine (1 - 2023-2 5 season) 2025 Influenza Vaccine (#1) 2025 RSV Immunization Adult Patie nts (1 - 1-dose 75+ series) 09/26/2043 HIB Vaccines Aged Out No longer eligi ble based on patient's age to complete this topic HPV Vaccines Aged Out No longer eligi ble based on patient's age to complete this topic Hepatitis A Vaccines Aged Out No long er eligible based on patient's age to complete this topic IPV Vaccines Aged Out No longer eligi ble based on patient's age to complete this topic MMR Vaccines Aged Out No longer eligi ble based on patient's age to complete this topic Meningococcal ACWY Vaccine Aged Out N o longer eligible based on patient's age to complete this topic Meningococcal B Vaccine Aged Out No l onger eligible based on patient's age to complete this topic RSV Immunization Patients Un melvin 20 months Aged Out No longer eligible b ased on patient's age to complete this topic Varicella Vaccines Aged Out No longer eligible based on patient's age to complete this topic Care Teams Greige Goods Marker Relationship Specialty Start Date End Date Nicola Davis MD [address] [place] [phone] PCP - General Internal Medicine 04/30/19
--- OUTSIDE RECORDS SUMMARY | 2025-05-08 16:34 | XMS_ITS | Clinical Summary ---
Author Organization [facility] Address [address] [place] [address] Care Team Providers Care Direct Support Professional Caregiver Name Role Phone Nicola Davis MD Primary Care Provider [phone] Allergies Active Allergy Reactions Criticality Noted Date Comments Ciprofloxacin 05/06/2019 Hydrocodone 05/06/2019 Hydromorphone 12/20/2015 Oxycodone Other (See Comments),Hives 3 N/V Oxycodone-Acetaminophen Other (See Comments),Hives Medications Medication Sig Dispensed Refills Start Date End Date Status albuterol (PROVENTIL) (2.5 MG/3ML) 0.083% nebulizer solution Inhale 2.5 mg into the lungs every 6 (six) hours as needed. 0 Active albuterol (PROAIR HFA) 108 (90 Base) MCG/ACT inhaler Inhale into the lungs. 0 09/23/2015 Active fluconazole (DIFLUCAN) 150 MG tablet TAKE ONE TABLET BY MOUTH ONCE 0 05/02/2019 Active levothyroxine (SYNTHROID, LEVOXYL) tablet 137 mcg TAKE ONE TABLET BY MOUTH EVERY DAY 1 02/17/2019 Active albuterol 108 (90 Base) MCG/ACT inhaler Inhale 2 puffs into the lungs every 6 (six) hours as needed for wheezing. 6.7 g 0 03/04/2022 Active methylPREDNISolone (MEDROL DOSEPACK) 4 MG tablet follow package directions 21 tablet 0 03/04/2022 Active Active Problems Problem Noted Date Diagnosed Date Acute medial meniscus tear of right knee 019 Social History Tobacco Use Types Packs/Day Years Used Date Smoking Tobacco: Unknown Tobacco Cessation:Counseling Given: Not Answered Sex and Gender Information Value Date Recorded Sex Assigned at Female 03/04/2022 4:15 PM EDT Gender Identity Female 02/25/2023 8:35 AM EDT Sexual Orientation Not on file Job Start Date Occupation Industry Not on file Not on file Not on file Last Filed Vital Signs Vital Sign Reading Time Taken Comments Blood Pressure 114/93 02/25/2023 8:32 AM EDT Pulse 72 02/25/2023 8:32 AM EDT Temperature 37 C (98.6 F) 02/25/2023 8:32 AM EDT Respiratory Rate 18 02/25/2023 8:32 AM EDT Oxygen Saturation 99% 02/25/2023 8:32 AM EDT Inhaled Oxygen Concentration - - Weight 64.4 kg (142 lb) 03/04/2022 2:59 PM EDT Height 161.3 cm (5' 3.5 ) 03/04/2022 2:59 PM EDT Body Mass Index 24.76 03/04/2022 2:59 PM EDT Plan of Treatment Health Maintenance Due Date Last Done Comments Hepatitis B Vaccines (1 of 3 - 3-dose series) 1968 Hepatitis C Screening 1968 COVID-19 Vaccine (#1) 03/28/1969 Depression Screening 1980 Preventative Health Evaluation 1986 Cervical Cancer Screening (Pap Smear) 1989 Colon Cancer Screening (Colonoscopy) 2013 DTap / Tdap / Td (1 - Tdap) 04/12/201803/17, 10/21/2007 Breast Cancer Screening (Mammogram) 2018 Shingrix-Zoster Vaccine (1 o f 2) 2018 Influenza Vaccine (#1) 2025 Pneumococcal Vaccine Aged Out 12/14/2008 No long er eligible based on patient's age to complete this topic RSV Ped < 20 months Aged Out No longe r eligible based on patient's age to complete this topic Care Teams Direct Support Professional Caregiver Relationship Specialty Start Date End Date Nicola Davis MD [address] [facility] [place] [address] PCP - General Internal Medicine 04/30/19
--- OUTSIDE RECORDS SUMMARY | 2025-05-08 16:34 | XMS_ITS | Clinical Summary ---
Author Organization [facility] Address [address] [place] [address] Phone Care Team Providers Care Nursing Coordinator Name Role Phone Keyla Dorsey PA-C Primary Care Provider Allergies Active Allergy Reactions Criticality Noted Date Comments Bee Pollen 04/20/2023 Bee stings Cetirizine Low 11/24/2022 Other reaction(s): SLEEPY Ciprofloxacin Hypotension 05/06/2019 fainting Codeine Itching,Nausea and/o r Vomiting 11/24/2022 Other reaction(s): nausea and vomiting Dilaudid (Hydromorphone) Itching 12/20/2015 Tolerates morphine Gabapentin Mental Status Change 11/04/2024 Gadolinium-Containing Contrast Media Anaphylaxis High 10/11/2020 Glucagon 11/24/2022 Oxycodone Nausea and/or Vomiting,Hives 07/22/2012 N/V Other reaction(s): Other (See Comments) N/V Oxycodone-Acetaminophen Hives 03/30/2020 Other reaction(s): Other (See Comments) Percocet (Oxycodone-Acetaminophen ) Nausea and/or Vomiting 12/20/2015 Metoclopramide Hcl 10/16/2020 Tolerates Zofran Vicodin (Hydrocodone-Acetaminoph en) Nausea and/or Vomiting 12/20/2015 Medications cholecalciferol (VITAMIN D3) 25 MCG (1,000 unit) tablet Take 1,000 Units by mouth daily. Active albuterol 90 mcg/actuation inhaler INHALE 2 PUFFS EVERY 4 HOURS NEEDED *LIMIT 1 INHALER PER MONTH* 10/30/2022 Active loratadine (CLARITIN) 10 mg tablet Take 10 mg by mouth daily. 08/27/2022 Active SUMAtriptan (IMITREX) 50 MG tabletIndication s:Hypnic headache,Migrain e without aura and without status migrainosus, not intractable Take 1 tablet (50 mg total) by mouth once as needed for migraine. Can repeat dose in 2 hours if needed. Do not exceed 2 doses in a 24 hour period. Max dose 200mg/ day 18 tablet 11 11/21/2023 Active propranoloL (INDERAL) 20 MG immediate release tabletIndication s:Essential tremor Take 1 tablet (20 mg total) by mouth 3 (three) times a day as needed. 90 tablet 5 11/21/2023 Active predniSONE (DELTASONE) 10 MG tablet Take 2 tablets by mouth every morning. 04/30/2024 Active doxycycline monohydrate (MONODOX) 100 MG capsule Take 1 capsule (100 mg total) by mouth 2 (two) times a day. 14 capsule 08/27/2024 Active levothyroxine (SYNTHROID) 200 MCG tablet Take 150 mcg by mouth every morning. 10/08/2024 Active liothyronine (CYTOMEL) 5 MCG tablet Take 5 mcg by mouth daily. 10/08/2024 Active morphine (MS CONTIN) 15 MG ER tablet Take 15 mg by mouth 2 (two) times a day. 10/08/2024 Active ID-morphine IR ([id number]) 15 mg tablet Take 15 mg by mouth 4 (four) times a day. 10/08/2024 Active cyclobenzaprine (FLEXERIL) 5 MG tablet Take 5 mg by mouth 3 (three) times a day. 10/08/2024 Active hydrOXYzine (VISTARIL) 25 MG capsule Take 25 mg by mouth 4 (four) times a day. 10/08/2024 Active metFORMIN (GLUCOPHAGE) 500 MG tablet Take 2 tabs in the AM, One tab in the PM 11/04/2024 Active valACYclovir (VALTREX) 1000 MG tabletIndication s:Cold sore TAKE 1 TABLET (1,000 MG TOTAL) BY MOUTH DAILY NEEDED. 6 tablet 2 12/22/2024 Active celecoxib (CELEBREX) 200 MG capsuleIndicatio ns:Tick bite, unspecified site, initial encounter TAKE 1 CAPSULE BY MOUTH EVERY DAY 30 capsule 01/21/2025 Active Active Problems Problem Noted Date Diagnosed Date Tick bite 12/16/2024 Assessment & Plan (12/16/2024 9:10 AM EDT): Discussed that the likelihood of having Lyme disease is minimal due to the absence of engorgement of the vertex and the removal within 36 hours of attachment. No evidence of erythema migrans on exam today, no evidence of tick bites on exam today. Will obtain Lyme panel for further assessment. She is outside the 72-hour window for prophylactic treatment. Celebrex sent to pharmacy for nonspecific neck and back pain. Acute recurrent maxillary sinusitis 08/27/2024 Acute non-recurrent pansinusitis 07/31/2024 Assessment & Plan (07/31/2024 10:18 AM EST): Patient noted to have 2 weeks of nasal congestion, sinus congestion, tenderness to palpation over the sinuses, and left ear pain. She has noted that the sinus congestion has worsened the past 2 days. On exam she does have fullness and tenderness to palpation over the maxillary, frontal, and ethmoid sinuses. Due to her length of symptoms, I do suspect that this was originally viral but has transition to bacterial sinusitis. Will prescribe amoxicillin x 10 days for treatment. She does note that when she takes antibiotics she often gets yeast infections. She is requesting oral Diflucan to be prescribed today. I did discuss with her that I do not prescribe anything preemptively if she is not experiencing symptoms yet. I did advise her that if she does start to get symptoms of a yeast infection, she should send me a message or call our office and I will then send Diflucan to her pharmacy of choice. She is in agreement. Acute cough 07/31/2024 Assessment & Plan (07/31/2024 10:43 AM EST): Patient noted to have a nonproductive cough x 2 weeks. She also has other respiratory symptoms including nasal congestion, chest congestion, headache, ear pain. Her daughter has been experiencing the same symptoms and recently came to the office and was diagnosed with RSV. Wktkj-ku-ffhm flu/COVID/RSV obtained in the office, negative. Discussed with the patient symptomatic treatment including [id number] medications. Advised that she should stay hydrated drink plenty of fluids. Advised that she should isolate and wear a mask out in public. She does have an upcoming trip to [place] next week, advised her at that point she should not be contagious but she should continue to wear a mask in the airport and out in public. She is in agreement. Advised that if she is feeling too sick, she should not fly for the safety for herself and for others. Prediabetes 05/20/2024 Assessment & Plan (11/04/2024 12:47 PM EDT): Patient comes in today noting concerns regarding her blood sugar levels, she has been monitoring them multiple times throughout the day ranging from 120-220. She does note some symptoms including increased thirst and urination. Currently on metformin 1000 mg in the morning and 500 mg at night, prescribed by her integrative medicine providers. [id number] hemoglobin A1c was obtained in the office today, 5.6. She is also to obtain a fasting blood work that was previously ordered tomorrow. No changes in regards to medications have been made today, however due to her side effects of diarrhea with the metformin, will consider switching to another diabetic medication. I do not think endocrinology is appropriate at this time. However, possible nurses educator may be beneficial to help discuss what daily blood sugar readings mean Assessment & Plan (05/20/2024 9:31 AM EST): Diagnosed by integrative medicine. On metformin 500mg daily. Will obtain Hgb A1c PMR (polymyalgia rheumatica) 05/20/2024 Assessment & Plan (05/20/2024 9:32 AM EST): Diagnosed by integrative medicine. On prednisone 20mg daily Lumbar spine instability 05/20/2024 Assessment & Plan (05/20/2024 10:13 AM EST): She see's [facility], will be obtaining diagnostic facet joint injections in the near future. Cold sore 05/20/2024 Assessment & Plan (07/31/2024 10:14 AM EST): She does note that she has a cold sore on the roof of her mouth, on exam noted to have 3 sores located on the roof of the mouth. She took her first dose of Valtrex today. Assessment & Plan (05/20/2024 10:14 AM EST): Patient has cold sore flares, more often in the winter. Refilled valcyclovir. Breast cancer screening by mammogram 05/20/2024 Assessment & Plan (05/20/2024 10:15 AM EST): She has not had a mammogram in 5 years. Order placed. Frequent headaches 05/20/2024 Assessment & Plan (05/20/2024 10:17 AM EST): She does get frequent headaches and follows neurology. She has trialed melatonin with minimal effect. Sumatriptan and zofran help to abort the headaches. Posterior cervical lymphadenopathy 05/20/2024 Assessment & Plan (12/16/2024 9:11 AM EDT): Lymphadenopathy nonspecific and could be enlarged for various reasons, including her chronic sinus issues as well as her new onset diarrhea. Likely reactive but will consider imaging in the future if persistent. Assessment & Plan (05/20/2024 10:20 AM EST): Patient has a swollen 1cm posterior cervical lymph node that is tender and immobile. Discussed getting an ultrasound, however patient declines at this time as it has been improving and she wants to wait and see what happens. Nodule of finger 05/20/2024 Assessment & Plan (05/20/2024 10:21 AM EST): Patient has 2 tender nonerythematous nodules on her right index finger. Denies injury. Discussed getting an Xray but patient is not interested at this time. Benign essential tremor 05/19/2024 Assessment & Plan (05/20/2024 10:11 AM EST): Diagnosed by neurology. She does note baseline tremors. She has been prescribed propranolol 20mg per neurology however she does not usually take it because it makes her tired. I did caution her about taking it because it is a beta tameka that can lower her blood pressure and HR, and her pressure in the office today is 110/60. Memory difficulty 05/19/2024 Assessment & Plan (05/20/2024 10:12 AM EST): The patient does note increased memory difficulty. She did recently lose her mother to Alzheimer's. Per neurology, will obtain labs. Routine general medical exam ination at a [facility] facility 05/19/2024 Assessment & Plan (05/20/2024 10:14 AM EST): Will obtain baseline labs and follow up in 6 months for a recheck. Cervical radiculopathy 12/22/2022 Unintended awareness under g eneral anesthesia during procedure 11/24/2022 PONV (postoperative nausea and vomiting) 023 Rotator cuff tear 05/31/2021 Initial physical therapy assessment 10/19/2020 Thrombocytopenia 10/17/2020 Assessment & Plan (10/19/2020 11:19 AM EDT): Transient thrombocytopenia, resolved --Plan surveillance Left knee pain 10/16/2020 Assessment & Plan (10/19/2020 11:19 AM EDT): Complex orthopedic history with multiple prior surgeries [...] if continued improved --Repeat ESR in AM Hypothyroidism 10/16/2020 Assessment & Plan (12/16/2024 9:11 AM EDT): Her thyroid levels remain uncontrolled with the most recent thyroid panel showing a TSH of 0.01 and a free T4 of 2.0. This is currently being managed by nurse practitioner through [facility]. Thyroid levels likely out of range due to discontinuation of TRANSFER CONTROLLER thyroid with the transition to levothyroxine, initially placed on levothyroxine 200 mcg daily from the nurse practitioner. I advised the patient to consult her nurse practitioner regarding the adjustment of the levothyroxine dosage to achieve optimal control. Assessment & Plan (10/16/2020 3:18 PM EDT): -continue TRANSFER CONTROLLER thyroid Asthma 10/16/2020 Assessment & Plan (05/20/2024 10:09 AM EST): Occurs most often in the winter when she is indoors. She has an albuterol inhaler PRN. Status post total shoulder arthroplasty, right 0 03/17/2020 Right shoulder pain 03/03/2019 Assessment & Plan (10/19/2020 11:19 AM EDT): -s/p right rotator cuff revision with Dr. Thurman on 10/14/2020 (Had total right shoulder arthroplasty 01/2020) --PT/OT Knee pain 01/30/2013 Overview (09/05/2014): Knee pain Assessment & Plan (05/20/2024 10:13 AM EST): She has an upcoming total right knee replacement in early 2024. 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 She does note that her thyroid levels fluctuate a lot at baseline. On TRANSFER CONTROLLER thyroid prescribed by her integrative medicine. Encounters Date Type Department Care Team Description 04/23/2025 Telephone [facility] [address], [address] [place] [address] [phone] Nathan Cartwright MD 04/02/2025 8:55 AM EDT - 04/02/2025 11:59 PM EDT Hospital Encounter [facility] Laboratory [address] [place] [address] Rosa Hernandez NP Discharge Disposition: Home or Self Care 04/02/2025 Transcribe Orders [facility] [address] [place] [address] Rosa Hernandez, LYNN Chronic lymphocytic thyroiditis (Primary Dx); Autoimmune thyroiditis; Polymyalgia rheumatica; Prediabetes 03/19/2025 Orders Only [facility] [address] [place] [address] Krys Dunn MA Primary osteoarthritis of right knee (Primary Dx) 03/12/2025 Transcribe Orders [facility] Neurology [address] [place] [address] Heathre Vines [place] Radiculopathy, lumbar region (Primary Dx) from Last 3 Months Immunizations Immunization Administration Dates Next Due Hepatitis A, Adult 12/14/2008,05/14/2008 Mumps 05/19/2004 Pneumococcal polysaccharide PPSV23 12/14/2008 Rubella 05/19/2004 Td (adult) 5 Lf Tetanus Toxoid, PF, Adsorbed Td, unspecified formulation 10/21/2007 Tdap 10/21/2007 Family History Medical History Relation Comments Enrico's thyroiditis Maternal Grandfather Diabetes Mother Rheumatoid arthritis Mother Relation Status Comments Maternal Grandfather Mother Social History Tobacco Use Types Packs/Day Years Used Date Smoking Tobacco: Never Smokeless Tobacco: Never Tobacco Cessation:Counseling Given: Not Answered Alcohol Use Standard Drinks/Week Comments Yes 2 (1 standard drink = 0.6 oz pur e alcohol) The weekends Home Health Assessment: Transportation Answer Date Recorded Lack of Transportation (Medical) No 10/17/2024 Lack of Transportation (Non-Medical) No 10/17/2024 Patient Unable or Declines to Respond No 10/17/2024 Child or Family Care Answer Date Record ed Do you have problems with on e of the following making it difficult for you to work, study, or receive health care? No 05/20/2024 Education Answer Date Recorded Are you interested in help w ith more adult education (for example, completing high school, GED, job training, learning the Malay language, technical skills, or developing parenting skills)? No 05/20/2024 Are you concerned about learning? Not on file 05/20/2024 No 05/20/2024 Yes 05/20/2024 Food Answer Date Recorded Within the past 6 months we worried whether our food would run out before we got money to buy more. Never True 05/20/2024 Within the past 6 months the food we bought just didn't last and we didn't have enough money to get more. Never True Residential Stability Answer Date Recor ded What is your housing situation today? I have christopher rg 05/20/2024 How many times have you move d in the past 12 months? Zero (I did not move) 05/20/2024 Paying for Meds Answer Date Recorded Do you have trouble paying for medicines? No 05/20/2024 Paying Utility Bills Answer Date Record ed Do you have trouble paying your heating or elect ricity bill? No 05/20/2024 Transportation Answer Date Recorded Has the lack of transportati on kept you from medical appointments or from getting medications? No 05/20/2024 Digital Access Answer Date Recorded No 05/20/2024 Yes 05/20/2024 Do you have reliable internet access at home? Ye s 05/20/2024 Do you have a device (e.g., phone, tablet, computer) with a working camera? Yes 05/20/2024 Intimate Partner Violence Answer Date R ecorded Denied Basic Needs Not on file 05/20/2024 In the past 12 months have y ou been in a relationship with a person who hurts, threatens, or tries to control you? No 05/20/2024 Worried food would run out Not on file 05/20 In the past 12 months have y ou been in a relationship with a person who hurts, threatens, or tries to control you? No 05/20/2024 Comments No Sex and Gender Information Value Date Recorded Sex Assigned at Female 12/14/2019 12:18 PM EDT Legal Sex Female 7:17 PM EST Gender Identity Female 12/14/2019 12:18 PM EDT Sexual Orientation Straight 12/14/2019 12 :18 PM EDT Last Filed Vital Signs Vital Sign Reading Time Taken Comments Blood Pressure 126/68 12/16/2024 8:41 AM EDT Pulse 80 12/16/2024 8:41 AM EDT Temperature 36.1 C (97 F) 12/16/2024 8:41 AM EDT Respiratory Rate 17 12/16/2024 8:41 AM EDT Oxygen Saturation 90% 12/16/2024 8:41 AM EDT Inhaled Oxygen Concentration - - Weight 74.4 kg (164 lb) 12/16/2024 8:41 AM EDT Height 160 cm (5' 2.99 ) 12/16/2024 8:41 AM EDT Body Mass Index 29.06 12/16/2024 8:41 AM EDT Plan of Treatment Upcoming Encounters Date Type Department Care Team (Late st Contact Info) Description 05/20/2024 Procedure Pass [address] [place] [address] 05/15/2025 1:45 PM EDT Appointment [address] [place] [address] Keyla Dorsey PA-C [address] [place] [id number] [email or web address] 06/09/2025 9:30 AM EST Procedure visit [facility] Neurology [address] [place] [address] Gelacio Thurston MD [address] [place] [id number] Arnaldo Dasilva MD [address] [place] [address] [email or web address] Health Maintenance Due Date Last Done Comments PAP SMEAR 1989 PNEUMOCOCCAL VACCINES (50+ years) (2 of 2 - PCV) 12/14/2009 12/14/2008 COLOGUARD 2013 COLONOSCOPY 2013 COLORECTAL CANCER SCREENING 2013 FIT TEST 2013 FOBT 2013 SIGMOIDOSCOPY 2013 VIRTUAL COLONOSCOPY 2013 RSV VACCINE (1 - Risk 50-74 years 1-dose series) 2018 ZOSTER VACCINES (1 of 2) 2018 MAMMOGRAM 02/02/2019 02/02/2017 INFLUENZA VACCINE (#1) 2025 COVID-19 VACCINE ( - season) 2025 DEPRESSION SCREENING 05/20/2025 05/20/2024 CREATININE LEVEL 11/05/2025 11/05/2024, 04/2023, 12/07/2022, Additional history exists TSH LEVEL 04/02/2026 04/02/2025, 07/0 02/2025, 12/11/2024, Additional history exists SCREENING FOR DIABETES 04/02/2028 04/02/2025, 2022 Adult Td,Tdap Booster 04/11/2028 04/11/2018 , 10/21/2007, 10/21/2007 LIPID PANEL 11/05/2029 11/05/2024 HEPATITIS A VACCINES Aged Out 12/14/2008, 05/14/20 08 No longer eligible based on patient's age to complete this topic HEPATITIS C SCREENING Completed 10/24/2010 HIV ONE-TIME SCREENING (18-65 YEARS) Completed 10/24/2010 SMOKING STATUS SCREENING (Once After 26 Yrs) Completed 12/16/2024 HIB VACCINES Aged Out No longer eligi ble based on patient's age to complete this topic MENINGOCOCCAL VACCINES (ACWY) Aged Out No longer eligible based on patient's age to complete this topic MENINGOCOCCAL VACCINES (B) Aged Out N o longer eligible based on patient's age to complete this topic Medical Devices Implanted Type Area Site Damage Prevention Technician Device Identifier Shelf Expiration Date Model / Serial / Lot Bonetissue BONETISSUE Knee Description:Pt. states she h as a left total knee replacement Prosthetic Joint Prosthetic Joint Left: Knee Prosthetic Joint Prosthetic Joint Right: Toe [place] Suture 4.5mm Arthroscopy Reelx Stt Peek Ss Core Knotless Shapr Tip Expandable Bx/5ea - [id number] Implanted:Qty: 1 on 07/03/2019 by Papi Thurman DO at [facility] Right: Shoulder [employer] 12/24/2019 [id number] / / [id number] Shoulder Implant 30mm Sm Component Glenoid Aequalis Perform Cortiloc - [id number] Implanted:Qty: 1 on 02/12/2020 by Papi Thurman DO at [facility] Right: Shoulder [employer] 08/14/2024 [id number] / / [id number] Cement Bone Biomet Standard R 1x40 Us - [id number] Implanted:Qty: 1 on 02/12/2020 by Papi Thurman DO at [facility] Right: Shoulder GAURAV / [employer] 01/13/2024 [id number] / / [id number] Shoulder Simpliciti Size 2 Nucleus Humeral System - [id number] Implanted:Qty: 1 on 02/12/2020 by Papi Thurman DO at [facility] Right: Shoulder [employer] 11/06/2024 [id number] / / [id number] Shoulder 57p98ar Prosthesis Simpliciti - [id number] Implanted:Qty: 1 on 02/12/2020 by Papi Thurman DO at [facility] Right: Shoulder [employer] 10/25/2022 [id number] / / [id number] Glenosphere Component 36mm Perform Reverse Standard - [id number] Implanted:Qty: 1 on 05/31/2021 by Kenneth Love MD at [facility] Right: Shoulder [employer] 04/27/2026 [id number] / [id number] / Baseplate Glenoid 25mm +3 Reversed Perform - [id number] Implanted:Qty: 1 on 05/31/2021 by Kenneth Love MD at [facility] Right: Shoulder [employer] 03/31/2026 [id number] / [id number] / Screw Bone 34mm Perform Reverse - [id number] Implanted:Qty: 1 on 05/31/2021 by Kenneth Love MD at [facility] Right: Shoulder [employer] [id number] / / Screw Bone 30mm Perform Reverse - [id number] Implanted:Qty: 1 on 05/31/2021 by Kenneth Love MD at [facility] Right: Shoulder [employer] [id number] / / Screw Bone 5x22mm Perform Reverse - [id number] Implanted:Qty: 1 on 05/31/2021 by Kenneth Love MD at [facility] Right: Shoulder [employer] [id number] / / Screw Bone 5x18mm Perform Reverse - [id number] Implanted:Qty: 1 on 05/31/2021 by Kenneth Love MD at [facility] Right: Shoulder [employer] [id number] / / Tornier Perform Humeral System Reversed Insert Size 36mm Plus 3mm Implanted:Qty: 1 on 05/31/2021 by Kenneht Love MD at [facility] Right: Shoulder 03/08/2026 / [id number] / Tornier Peform Humeral Stem Size One Standard Short Implanted:Qty: 1 on 05/31/2021 by Kenneth Love MD at [facility] Right: Shoulder 02/04/2026 / [id number] / Post Press Fit Long 15mm Perform Reversed - [id number] Implanted:Qty: 1 on 05/31/2021 by Kenneth Love MD at [facility] Right: Shoulder [employer] 04/04/2026 [id number] / [id number] / Perform Humeral System Implanted:Qty: 1 on 07/27/2022 by Kenneth Love MD at [facility] Right: Shoulder [employer] [id number] 04/08/2025 [id number] / [id number] / 4.[address] [place] Screw Implanted:Qty: 4 on 12/22/2022 by Kan Najera MD at [facility] N/A: Neck [employer] [id number] / [id number] / Description:The implant type , laterality (when applicable), size, and expiration date have been visually and verbally confirmed by the Surgeon, Circulating RN and Scrub Personnel. LOAD [id number] [employer] STE[employer] 12-21-[address] [place] Screw Implanted:Qty: 2 on 12/22/2022 by Kan Najera MD at [facility] N/A: Neck [employer] [id number] / / Description:The implant type , laterality (when applicable), size, and expiration date have been visually and verbally confirmed by the Surgeon, Circulating RN and Scrub Personnel. LOAD [id number] [facility] 12-21-22 2 Level 32.5 Sm Plate Implanted:Qty: 1 on 12/22/2022 by Kan Najera MD at [facility] N/A: Neck [employer] [id number] / [id number] / Description:The implant type , laterality (when applicable), size, and expiration date have been visually and verbally confirmed by the Surgeon, Circulating RN and Scrub Personnel. LOAD [id number] [facility] 12-21-22 Procedures Procedure Name Priority Date/Time Associated Diagnosis Comments ANTINUCLEAR ANTIBODY (MARILEE) Routine 04/02/2025 8:57 AM EDT Chronic lymphocytic thyroiditis Autoimmune thyroiditis Polymyalgia rheumatica Prediabetes C-REACTIVE PROTEIN Routine 04/02/2025 8: 57 AM EDT Chronic lymphocytic thyroiditis Autoimmune thyroiditis Polymyalgia rheumatica Prediabetes SEDIMENTATION RATE (ESR) Routine 04/02/2025 8:57 AM EDT Chronic lymphocytic thyroiditis Autoimmune thyroiditis Polymyalgia rheumatica Prediabetes FREE T3 Routine 04/02/2025 8:57 AM EDT Chronic lymphocytic thyroiditis Autoimmune thyroiditis Polymyalgia rheumatica Prediabetes FREE T4 Routine 04/02/2025 8:57 AM EDT Chronic lymphocytic thyroiditis Autoimmune thyroiditis Polymyalgia rheumatica Prediabetes HEMOGLOBIN A1C Routine 04/02/2025 8:57 AM EDT Chronic lymphocytic thyroiditis Autoimmune thyroiditis Polymyalgia rheumatica Prediabetes THYROGLOBULIN ANTIBODY Routine 8:57 AM EDT Chronic lymphocytic thyroiditis Autoimmune thyroiditis Polymyalgia rheumatica Prediabetes THYROPEROXIDASE (TPO) ANTIBODIES Routine 04/02/2025 8:57 AM EDT Chronic lymphocytic thyroiditis Autoimmune thyroiditis Polymyalgia rheumatica Prediabetes TSH Routine 04/02/2025 8:57 AM EDT Chronic lymphocytic thyroiditis Autoimmune thyroiditis Polymyalgia rheumatica Prediabetes LIPID PANEL Routine 11/05/2024 9:18 AM EDT Routine general medical examination at a health care facility COMPREHENSIVE METABOLIC PANEL Routine 11/05/2024 9:18 AM EDT Routine general medical examination at a health care facility BI MAMMOGRAM OUTSIDE (NO INTERPRETATION) Routine 02/02/2017 12:00 AM EDT HISTORICAL LAB Routine 10/24/2010 12:00 AM EDT from Last 3 Months or Most Recently Relevant to Health Maintenance Results * (ABNORMAL) Thyroglobulin antibody (04/02/2025 8:57 AM EDT) THYROGLOBULIN ANTIBODY, S 13(H) <4.0 IU/mL [facility]PATH SU[facility]IOR DR Comment: (NOTE) ADDITIONAL INFORMATION PLEASE NOTE: The given thyroglobulin antibody (TgAb) reference cutoff of <4.0 IU/mL is for the evaluation of autoimmune thyroiditis. A cutoff of <1.8 IU/mL may be more suitable for the detection of potential thyroglobulin antibody (TgAb) interference in thyroglobulin immunoassays. The thyroglobulin antibody testing method is an immunoenzymatic assay manufactured by [employer] and performed on the [employer] DXI 800. Values obtained from different assay methods or kits may be different and cannot be used interchangeably. The results cannot be interpreted as absolute evidence for the presence or absence of malignant disease. Blood 04/02/2025 8:57 AM EDT 04/02/2025 9:04 AM EDT Rosa G David TRANSFER CONTROLLER LAB BLOOD ORDERABLES Final Result Performing Organization Address [facility] Co de Phone Number [facility] MED/PATH [address] [place] [address] * (ABNORMAL) Thyroperoxidase (TPO) antibodies (04/02/2025 8:57 AM EDT) THYROPEROXIDASE AB, S 10.8(H) <9.0 IU/mL [facility] MED/PATH SUPERIOR Blood 04/02/2025 8:57 AM EDT 04/02/2025 9:04 AM EDT us Rosa Hernandez TRANSFER CONTROLLER LAB BLOOD ORDERABLES Final Result Performing Organization Address [facility] de Phone Number [facility] MED/PATH [address] [place] [address] * Sedimentation rate (ESR) (04/02/2025 8:57 AM EDT) ESR 16 0 - 30 mm/h [facility] Blood 04/02/2025 8:57 AM EDT 04/02/2025 9:04 AM EDT us Rosa Hernandez TRANSFER CONTROLLER LAB BLOOD ORDERABLES Final Result Performing Organization Address [facility] Co de Phone Number [address] [address] * C-Reactive Protein (04/02/2025 8:57 AM EDT) C REACTIVE PROTEIN <3.0 0.0 - 4.0 mg/L [facility] Blood 04/02/2025 8:57 AM EDT 04/02/2025 9:04 AM EDT us Rosa Hernandez TRANSFER CONTROLLER LAB BLOOD ORDERABLES Final Result Performing Organization Address [facility] Co de Phone Number [address] [address] * Antinuclear antibody (MARILEE) (04/02/2025 8:57 AM EDT) MARILEE SCREEN ON HEP 2 Negative Negative [facility] Blood 04/02/2025 8:57 AM EDT 04/02/2025 9:04 AM EDT us Rosa Hernandez TRANSFER CONTROLLER LAB BLOOD ORDERABLES Final Result Performing Organization Address City/[facility]/ZIP Co de Phone Number [address] [address] * Free T3 (04/02/2025 8:57 AM EDT) FREE T3 2.8 2.0 - 4.4 pg/mL [facility] Blood 04/02/2025 8:57 AM EDT 04/02/2025 9:04 AM EDT us Rosa Hernandez TRANSFER CONTROLLER LAB BLOOD ORDERABLES Final Result Performing Organization Address [facility]/ZIP Co de Phone Number [address] [address] * TSH (04/02/2025 8:57 AM EDT) TSH 0.56 0.27 - 4.20 uIU/mL [facility] Blood 04/02/2025 8:57 AM EDT 04/02/2025 9:04 AM EDT us Rosa Hernandez TRANSFER CONTROLLER LAB BLOOD ORDERABLES Final Result Performing Organization Address [facility] Co de Phone Number [address] [address] * Free T4 (04/02/2025 8:57 AM EDT) FREE T4 1.1 0.9 - 1.7 ng/dL [facility] Blood 04/02/2025 8:57 AM EDT 04/02/2025 9:04 AM EDT us Rosa Hernandez TRANSFER CONTROLLER LAB BLOOD ORDERABLES Final Result [address] [address] * Hemoglobin A1c (04/02/2025 8:57 AM EDT) HEMOGLOBIN A1C 5.3 4.3 - 5.8 % [facility] Blood 04/02/2025 8:57 AM EDT 04/02/2025 9:04 AM EDT us Rosa Jefferson David TRANSFER CONTROLLER LAB BLOOD ORDERABLES Final Result Performing Organization Address City/[facility]/ZIP Co de Phone Number [address] [address] * (ABNORMAL) Comprehensive metabolic panel (11/05/2024 9:18 AM EDT) Pathologist [facility] SODIUM 141 133 - 146 mmol/L [facility] POTASSIUM 4.2 3.3 - 5.1 mmol/L [facility] CHLORIDE 101 96 - 108 mmol/L [facility] CO2 25 21 - 35 mmol/L [facility] BUN 16 6 - 19 mg/dL [facility] CREATININE 0.70 0.5 - 1.5 mg/dL [facility] GLUCOSE 138(H) 70 - 99 mg/dL [facility] ALBUMIN 4.4 3.9 - 4.8 g/dL [facility] TOTAL PROTEIN 7.3 6.5 - 8.0 g/dL [facility] CALCIUM 10.0 8.4 - 10.3 mg/dL [facility] ALKALINE PHOSPHATASE 101 39 - 117 U/L [facility] TOTAL BILIRUBIN 0.7 0.0 - 1.2 mg/dL [facility] AST 19 0 - 37 U/L [facility] ALT 15 0 - 40 U/L [facility] GLOBULIN 2.9 1 - 4.8 g/dL [facility] EGFR 101 >59 mL/min/1.7 3m2 [facility] Comment:Estimated glomerular filtration rate calculated using the CKD-EPI refit equation. ANION GAP 19 10 - 20 mmol/L [facility] Blood 11/05/2024 9:18 AM EDT 11/05/2024 9:24 AM EDT [facility] LAB BLOOD ORDERABLES Final R esult Performing Organization Address [facility] Co de Phone Number [address] [address] * (ABNORMAL) Lipid panel (11/05/2024 9:18 AM EDT) HDL 143 mg/dL [facility] Comment: Interpretation <40 mg/dL: Low HDL cholesterol (major risk factor for CHD) Greater than or equal to 60 mg/dL: High HDL cholesterol ( negative risk factor for CHD) HDL - cholesterol is affected by a number of factors, e.g. smoking, excerise, hormones, sex and age. CHOLESTEROL 272(H) 0 - 240 mg/dL [facility] TRIGLYCERIDES 88 30 - 160 mg/dL [facility] LDL 111 50 - 129 mg/dL [facility] Comment: LDL levels in terms of risk for coronary heart disease: <100 mg/dL: Optimal 100-129 mg/dL: Near or above optimal 130-159 mg/dL: Borderline high 160-189 mg/dL: High >190 mg/dL: Very High CARDIAC RISK RATIO 1.9(L) 3.3 - 4.4 [facility] Blood 11/05/2024 9:18 AM EDT 11/05/2024 9:23 AM EDT [facility] Sunita ALCARAZ-C LAB BLOOD ORDERABLES Final R esult Performing Organization Address [facility] Co de Phone Number [address] [address] * Mammogram Outside (No Interpretation) (02/02/2017 12:00 AM EDT) Narrative Angela Tatum - 06/04/2024 2:08 PM EST This study is for PACS storage only and not for interpretation. Procedure Note Angela Tatum - 06/04/2024 This study is for PACS storage only and not for interpretation. us Unknown Unknown MD [facility] W/OUT INT ERPRETATION Final Result * Historical Lab (10/24/2010 12:00 AM EDT) HIV I SCREEN NEGATIVE SCREEN NEGATIVE [facility] HIV II SCREEN NEGATIVE SCREEN NEGATIVE [facility] HBSAG NEGATIVE NEGATIVE [facility] ANTI - HCV NEGATIVE NEGATIVE [facility] 10/24/2010 10/24/2010 5:4 0 PM EDT us Champ Coombs MD LAB BLOOD ORDERABLES Elva nair Result Performing Organization Address City/State/[facility] Co de Phone Number [address] [address] from Last 3 Months or Most Recently Relevant to Health Maintenance Insurance [facility] PLUS O [employer] PLUS PPO [employer] PPO [employer]US PPO [employer] PLUS PPO [employer] GIC PLUS PPO [facility] PLUS PPO Advance Directives For more information, please contact: [phone] (9AM - 5PM [facility], Sunday-Sunday) * Full Code (Latest Code Status on File) Date Activated Date Inactivated Comments 10/16/2020 3:17 PM Question Answer Comments Code Status Confirmed With: Patient * Full Code (Presumed) Date Activated Date Inactivated Comments 02/12/2020 6:10 AM 10/16/2020 3:17 PM * Full Code (Presumed) Date Activated Date Inactivated Comments 07/03/2019 10:36 AM 07/03/2019 4:53 PM Care Teams Nursing Coordinator Relationship Specialty Start Date End Date Keyla Dorsey PA-C [address] [place] [address] [email or web address] PCP - General Physician Topline Beading Machine Tender 05/20/24 Additional Source Comments The information contained in this document represents components of the legal health record. It is not the complete legal health record.[facility]
--- OUTSIDE RECORDS SUMMARY | 2025-05-08 16:34 | XMS_ITS | Encounter Summary ---
Author Organization [facility] Address [address] [place] [address] Phone Care Team Providers Care Chemical Educator Name Role Phone Nicola Davis MD Primary Care Provid er Keyla Dorsey PA-C Primary Care Provider [phone] Encounter Details Date Type Department Care Team (Late st Contact Info) Description 08/14/2022 Procedure Pass MRI, [facility] - [address], [address] [place] [id number] Social History Tobacco Use Types Packs/Day Years [...] st Contact Info) Description 05/20/2024 Procedure Pass [address] [place] [address] 05/15/2025 1:45 PM EDT Appointment [address] [place] [address] Keyla Dorsey PA-C [address] [place] [address] 06/09/2025 9:30 AM EST Procedure visit [facility] Neurology [address] [place] [address] Gelacio Thurston MD [address] [place] [address] Arnaldo Dasilva MD [address] [facility], 2nd [place] [address] documented as of this encounter Visit Diagnoses Not on filedocumented in this encounter Additional Health Concerns Infection Onset Date Last Indicated Resolved Time CoV-Risk 07/31/2024 07/31/2024 08/11/2024 1:22 AM EST CoV-Risk 08/27/2024 08/27/2024 09/07/2024 1:21 AM EST documented as of this encounter Care Teams Chemical Educator Relationship Specialty Start Date End Date Nicola Davis MD [address] [place] [phone] PCP - General Pediatrics 10/15/17 05/19/24 Keyla Dorsey PA-C [address] [place] [address] PCP - General Physician Medical Charge Entry Specialist 05/20/24 documented as of this encounter Additional Source Comments The information contained in this document represents components of the legal health record. It is not the complete legal health record.[facility]
--- OUTSIDE RECORDS SUMMARY | 2025-05-08 16:34 | XMS_ITS | Encounter Summary ---
Author Organization [facility] Address [address] [facility] [address] [place] [address] Phone Care Team Providers Care Desk Representative Name Role Phone Julian Duncan MD Unavailable Champ Coombs MD Unavailable [phone] Nicola Davis MD Primary Care Provid er Keyla Dorsey PA-C Primary Care Provider [phone] Encounter Details Date Type Department Care Team (Late st Contact Info) Description 10/11/2020 Prep for Surgery [facility] Orthopedics & Sports Medicine [address] [place] [address] Papi Thurman DO [address] [place] [address] Orthopedics & Sports Medicine, [place] [address] [email or web address] Traumatic complete tear of right rotator cuff, subsequent encounter (Primary Dx) Social History Tobacco Use Types Packs/Day Years [...] st Contact Info) Description 05/20/2024 Procedure Pass [address] [place] [address] 05/15/2025 1:45 PM EDT Appointment [address] [place] [address] Keyla Dorsey PA-C [address] [place] [address] 06/09/2025 9:30 AM EST Procedure visit [facility] Neurology [address] [place] [address] [place] [address] Gelacio Thurston MD [address] [place] [address] Arnaldo Dasilva MD [address] [facility], 2nd [place] [address] documented as of this encounter Visit Diagnoses Diagnosis Traumatic complete tear of right rotator cuff, subsequent encounter- Primary documented in this encounter Additional Health Concerns Infection Onset Date Last Indicated Resolved Time CoV-Risk 07/31/2024 07/31/2024 08/11/2024 1:22 AM EST CoV-Risk 08/27/2024 08/27/2024 09/07/2024 1:21 AM EST documented as of this encounter Care Teams Desk Representative Relationship Specialty Start Date End Date Nicola Davis MD [address] [facility] [address] [place] [address] PCP - General Pediatrics 10/15/17 05/19/24 Keyla Dorsey PA-C [address] [place] [address] [email or web address] PCP - General Physician Public Information Relations Manager 05/20/24 Julian Duncan MD [address] [place] [address] [email or web address] Historical LMR Provider 11/27/14 07/23/21 Champ Coombs MD [address] [place] [address] Historical LMR Provider 11/27/14 2 documented as of this encounter Additional Source Comments The information contained in this document represents components of the legal health record. It is not the complete legal health record.[facility]
--- OUTSIDE RECORDS SUMMARY | 2025-05-08 16:34 | XMS_ITS | Encounter Summary ---
Author Organization [facility] Address [address] [employer] [facility] [address] [place] [address] Phone Care Team Providers Care Key Carrier Name Role Phone Julian Duncan MD Unavailable Champ Coombs MD Unavailable [phone] Nicola Davis MD Primary Care Provid er Keyla Dorsey PA-C Primary Care Provider Encounter Details Date Type Department Care Team (Late st Contact Info) Description 03/03/2019 Procedure Pass [address] [place] [address] Social History Tobacco Use Types Packs/Day Years [...] PM EDT documented as of this encounter Last Filed Vital Signs Vital Sign Reading Time Taken Comments Blood Pressure - - Pulse - - Temperature - - Respiratory Rate - - Oxygen Saturation - - Inhaled Oxygen Concentration - - Weight 65.8 kg (145 lb) 03/06/2019 10:59 AM EDT Height 160 cm (5' 3 ) 03/06/2019 10:59 AM EDT Body Mass Index 25.69 03/06/2019 10:59 AM EDT documented in this encounter Functional Status documented as of this encounter Plan of Treatment Upcoming Encounters Date Type Department Care Team (Late st Contact Info) Description 05/20/2024 Procedure Pass [address] [place] [address] 05/15/2025 1:45 PM EDT Appointment [address] [place] [address] Keyla Dorsey PA-C [address] [place] [address] [email or web address] 06/09/2025 9:30 AM EST Procedure visit [facility] Neurology [address] [place] [address] Gelacio Thurston MD [address] [place] [address] Arnaldo Dasilva MD 22 [facility], 2nd [place] [address] [email or web address] documented as of this encounter Visit Diagnoses Not on filedocumented in this encounter Additional Health Concerns Infection Onset Date Last Indicated Resolved Time CoV-Risk 07/31/2024 07/31/2024 08/11/2024 1:22 AM EST CoV-Risk 08/27/2024 08/27/2024 09/07/2024 1:21 AM EST documented as of this encounter Care Teams Key Carrier Relationship Specialty Start Date End Date Nicola Davis MD [address] [place] [address] PCP - General Pediatrics 10/15/17 05/19/24 Keyla Dorsey PA-C [address] [place] [address] [email or web address] PCP - General Physician Looper Operator 05/20/24 Julian Duncan MD [address] [place] [address] [email or web address] Historical LMR Provider 11/27/14 07/23/21 Champ Coombs MD [address] [place] [address] Historical LMR Provider 11/27/14 2 documented as of this encounter Additional Source Comments The information contained in this document represents components of the legal health record. It is not the complete legal health record.[facility]
--- OUTSIDE RECORDS SUMMARY | 2025-05-08 16:34 | XMS_ITS | Encounter Summary ---
Author Organization [facility] Address [address] [place] [address] Phone Care Team Providers Care Commercial Makeup Artist Name Role Phone Keyla Dorsey PA-C Primary Care Provider Encounter Details Date Type Department Care Team (Late st Contact Info) Description 07/24/2024 Procedure Pass [facility], [address] [address] Social History Tobacco Use Types Packs/Day Years Used Date Smoking Tobacco: Never Smokeless Tobacco: Never Alcohol Use Standard Drinks/Week Comments Yes 2 (1 standard drink = 0.6 oz pur e alcohol) the weekends Child or Family Care Answer Date Record ed Do you have problems with on e of the following making it difficult for you to work, study, or receive health care? No 05/20/2024 Education Answer Date Recorded Are you interested in help w ith more adult education (for example, completing high school, GED, job training, learning the Bengali language, technical skills, or developing parenting skills)? [...] enough money to get more. Never True 11/05/202 4 Residential Stability Answer Date Recor ded What [...] - Inhaled Oxygen Concentration - - Weight 64.4 kg (142 lb) 07/24/2024 11:59 AM EST Height 160 cm (5' 3 ) 07/24/2024 11:59 AM EST Body Mass Index 25.15 07/24/2024 11:59 AM EST documented in this encounter Plan of Treatment Upcoming Encounters Date Type Department Care Team (Late st Contact Info) Description 05/20/2024 Procedure Pass [address] [place] [address] 05/15/2025 1:45 PM EDT Appointment [address] [place] [address] Keyla Dorsey PA-C [address] [place] [address] 06/09/2025 9:30 AM EST Procedure visit [facility] Neurology [address] [place] [address] Gelacio Thurston MD [address] [place] [address] Arnaldo Dasilva MD [address] [place] [address], 2[address] [place] [address] documented as of this encounter Visit Diagnoses Not on filedocumented in this encounter Additional Health Concerns Infection Onset Date Last Indicated Resolved Time CoV-Risk 07/31/2024 07/31/2024 08/11/2024 1:22 AM EST CoV-Risk 08/27/2024 08/27/2024 09/07/2024 1:21 AM EST Assessment Noted Time PHQ-2 Depression Total Score: 0 05/20/20 7:05 AM EST documented as of this encounter Care Teams Commercial Makeup Artist Relationship Specialty Start Date End Date Keyla Dorsey PA-C [address] [place] [address] PCP - General Physician Mice Raiser 05/20/24 documented as of this encounter Additional Source Comments The information contained in this document represents components of the legal health record. It is not the complete legal health record.[facility]
--- OUTSIDE RECORDS SUMMARY | 2025-05-08 16:34 | XMS_ITS | Encounter Summary ---
Author Organization [facility] Address [address] [facility] [address] [facility] [address] [place] [address] Phone Care Team Providers Care Teacher Of The Emotionally Disturbed Name Role Phone Julian Duncan MD Unavailable Champ Coombs MD Unavailable [phone] Nicola Davis MD Primary Care Provid er Keyla Dorsey PA-C Primary Care Provider [phone] Encounter Details Date Type Department Care Team (Late st Contact Info) Description 12/16/2019 Ancillary Orders [address] [address] Papi Thurman DO [address] [place] [address] Orthopedics & Sports Medicine, [place] [address] [email or web address] Right shoulder pain, unspecified chronicity Social History Tobacco Use Types Packs/Day Years [...] Contact Info) Description 05/20/2024 Procedure Pass [address] [place] [address] 05/15/2025 1:45 PM EDT Appointment [address] [place] [address] Keyla Dorsey PA-C [address] [place] [address] 06/09/2025 9:30 AM EST Procedure visit [facility] Neurology [address] [place] [address] [place] [address] Gelacio Thurston MD [address] [place] [address] Arnaldo Dasilva MD [address] [place] [address], 2[address] [place] [address] documented as of this encounter Visit Diagnoses Diagnosis Right shoulder pain, unspecified chronicity documented in this encounter Additional Health Concerns Infection Onset Date Last Indicated Resolved Time CoV-Risk 07/31/2024 07/31/2024 08/11/2024 1:22 AM EST CoV-Risk 08/27/2024 08/27/2024 09/07/2024 1:21 AM EST documented as of this encounter Care Teams Teacher Of The Emotionally Disturbed Relationship Specialty Start Date End Date Nicola Davis MD [address] [facility] [address] [place] [address] PCP - General Pediatrics 10/15/17 05/19/24 Keyla Dorsey PA-C [address] [place] [address] PCP - General Physician Valve Inspector 05/20/24 Julian Duncan MD [address] [place] [address] [email or web address] Historical LMR Provider 11/27/14 07/23/21 Champ Coombs MD [address] [place] [address] Historical LMR Provider 11/27/14 2 documented as of this encounter Additional Source Comments The information contained in this document represents components of the legal health record. It is not the complete legal health record.[facility]
--- OUTSIDE RECORDS SUMMARY | 2025-05-08 16:34 | XMS_ITS | Encounter Summary ---
Author Organization [facility] Address [address] [place] [address] Phone Care Team Providers Care Order Takers Supervisor Name Role Phone Nicola Davis MD Primary Care Provid er Keyla Dorsey PA-C Primary Care Provider [phone] Encounter Details Date Type Department Care Team (Late st Contact Info) Description 12/22/2022 Ancillary Orders [facility] [address], 3rd [address], [address] [place] [address] Kan Najera MD [address] [address] [place]ATT [phone] [email or web address] Social History Tobacco Use Types Packs/Day Years [...] 5:00 PM EDT Winnie Soliz RN * [place] Suicide Severity Rating Scale (Screener/Recent Self-Report) Question Answer Date of Assessment Author 1. Wish to be (Past 1 Month) No 12/22/2022 5:00 PM EDT Winnie Soliz, RN 2. Non-Specific Active Suici floridalma Thoughts (Past 1 Month) No 12/22/2022 5:00 PM EDT Al Soliz RN 6. Suicidal Behavior (Lifetime) No 5:00 PM EDT Winnie Soliz RN documented as of this encounter Plan of Treatment Upcoming Encounters Date Type Department Care Team (Late st Contact Info) Description 05/20/2024 Procedure Pass [address] [place] [address] 05/15/2025 1:45 PM EDT Appointment [address] [place] [address] Keyla Dorsey PA-C [address] [place] [phone] 06/09/2025 9:30 AM EST Procedure visit [facility] Neurology [address] [place] [address] Gelacio Thurston MD [address] [place] [address] Arnaldo Dasilva MD [address] [facility], 2nd [place] [address] documented as of this encounter Results * [place] Fluoroscopy (12/22/2022 12:58 PM EDT) Narrative [facility] IMG INTERFACES - 12/22/2022 1:00 PM EDT Fluoroscopy was provided during this procedure. us Kan Call Cha, MD IMG [place] MISC Final Result [facility] IM INTERFACES documented in this encounter Visit Diagnoses Diagnosis Pain Generalized pain Pain Generalized pain documented in this encounter Additional Health Concerns Infection Onset Date Last Indicated Resolved Time CoV-Risk 07/31/2024 07/31/2024 08/11/2024 1:22 AM EST CoV-Risk 08/27/2024 08/27/2024 09/07/2024 1:21 AM EST documented as of this encounter Care Teams Order Takers Supervisor Relationship Specialty Start Date End Date Nicola Davis MD [address] [place] [phone] PCP - General Pediatrics 10/15/17 05/19/24 Keyla Dorsey PA-C [address] [place] [address] [email or web address] PCP - General Physician Cafe Worker 05/20/24 documented as of this encounter Additional Source Comments The information contained in this document represents components of the legal health record. It is not the complete legal health record.[facility]
--- OUTSIDE RECORDS SUMMARY | 2025-05-08 16:34 | XMS_ITS | Encounter Summary ---
Author Organization [facility] Address [address] [place] [address] Phone Care Team Providers Care Chief Nursing Officer Name Role Phone Julian Duncan MD Unavailable Champ Coombs MD Unavailable [phone] Nicola Davis MD Primary Care Provid er Keyla Dorsey PA-C Primary Care Provider Encounter Details Date Type Department Care Team (Late st Contact Info) Description 10/07/2020 Procedure Pass [facility], Ct Scan [address] [address] Social History Tobacco Use Types Packs/Day Years [...] Contact Info) Description 05/20/2024 Procedure Pass [facility] - [address] [place] [address] 05/15/2025 1:45 PM EDT Appointment [address] [place] [address] Keyla Dorsey PA-C [address] [place] [address] [email or web address] 06/09/2025 9:30 AM EST Procedure visit [facility] Neurology [address] [place] [address] Gelacio Thurston MD [address] [place] [phone] Arnaldo Dasilva MD [address] [place] [address], 2nd [place] [address] [email or web address] documented as of this encounter Visit Diagnoses Not on filedocumented in this encounter Additional Health Concerns Infection Onset Date Last Indicated Resolved Time CoV-Risk 07/31/2024 07/31/2024 08/11/2024 1:22 AM EST CoV-Risk 08/27/2024 08/27/2024 09/07/2024 1:21 AM EST documented as of this encounter Care Teams Chief Nursing Officer Relationship Specialty Start Date End Date Nicola Davis MD [address] [phone] PCP - General Pediatrics 10/15/17 05/19/24 Keyla Dorsey PA-C [address] [place] [address] [email or web address] PCP - General Physician Newsstand Vendor 05/20/24 Julian Duncan MD [address] [place] [phone] [email or web address] Historical LMR Provider 11/27/14 07/23/21 Champ Coombs MD [address] [place] [address] Historical LMR Provider 11/27/14 2 documented as of this encounter Additional Source Comments The information contained in this document represents components of the legal health record. It is not the complete legal health record.[facility]
--- OUTSIDE RECORDS SUMMARY | 2025-05-08 16:34 | XMS_ITS | Encounter Summary ---
Author Organization [facility] Address [address] [place] [address] Phone Care Team Providers Care Ice Cream Dispenser Name Role Phone Julian Duncan MD Unavailable Champ Coombs MD Unavailable [phone] Nicola Davis MD Primary Care Provid er Keyla Dorsey PA-C Primary Care Provider [phone] Encounter Details Date Type Department Care Team (Late st Contact Info) Description 12/17/2019 Procedure Pass [facility], Ct Scan [address] [address] Social History Tobacco Use Types Packs/Day Years [...] st Contact Info) Description 05/20/2024 Procedure Pass [facility] - [address] [place] [address] 05/15/2025 1:45 PM EDT Appointment [address] [place] [address] Kyela Dorsey PA-C [address] [place] [address] [email or web address] 06/09/2025 9:30 AM EST Procedure visit [facility] Neurology [address] [place] [address] Gelacio Thurston MD [address] [place] [address] Arnaldo Dasilva MD [address] [place] [address], 2nd [place] [address] [email or web address] documented as of this encounter Visit Diagnoses Not on filedocumented in this encounter Additional Health Concerns Infection Onset Date Last Indicated Resolved Time CoV-Risk 07/31/2024 07/31/2024 08/11/2024 1:22 AM EST CoV-Risk 08/27/2024 08/27/2024 09/07/2024 1:21 AM EST documented as of this encounter Care Teams Ice Cream Dispenser Relationship Specialty Start Date End Date Nicola Daivs MD [address] [place] [phone] PCP - General Pediatrics 10/15/17 05/19/24 Keyla Dorsey PA-C [address] [place] [address] [email or web address] PCP - General Physician Anesthesiologist Assistant 05/20/24 Julian Duncan MD [address] [place] [phone] [email or web address] Historical LMR Provider 11/27/14 07/23/21 Champ Coombs MD [address] [place] [address] Historical LMR Provider 11/27/14 2 documented as of this encounter Additional Source Comments The information contained in this document represents components of the legal health record. It is not the complete legal health record.[facility]
--- OUTSIDE RECORDS SUMMARY | 2025-05-08 16:34 | XMS_ITS | Encounter Summary ---
Author Organization [facility] Address [address] [facility] [address] [place] [address] Phone Care Team Providers Care Spa Director/Finance Name Role Phone Julian Duncan MD Unavailable Champ Coombs MD Unavailable [phone] Nicola Davis MD Primary Care Provid er Keyla Dorsey PA-C Primary Care Provider Encounter Details Date Type Department Care Team (Late st Contact Info) Description 02/12/2020 Procedure Pass [place] Admitting Dept - Virtual Department [address] [place] [address] Social History Tobacco Use Types Packs/Day Years [...] st Contact Info) Description 05/20/2024 Procedure Pass [facility] - [address] [place] [address] 05/15/2025 1:45 PM EDT Appointment [address] [place] [address] Keyla Dorsey PA-C [address] [place] [address] [email or web address] 06/09/2025 9:30 AM EST Procedure visit [facility] Neurology [address] [place] [address] Gelacio Thurston MD [address] [place] [address] Arnaldo Dasilva MD [address] [place] [address], 2[address] [place] [address] [email or web address] documented as of this encounter Visit Diagnoses Not on filedocumented in this encounter Additional Health Concerns Infection Onset Date Last Indicated Resolved Time CoV-Risk 07/31/2024 07/31/2024 08/11/2024 1:22 AM EST CoV-Risk 08/27/2024 08/27/2024 09/07/2024 1:21 AM EST documented as of this encounter Care Teams Spa Director/Finance Relationship Specialty Start Date End Date Nicola Davis MD [address] [place] [phone] PCP - General Pediatrics 10/15/17 05/19/24 Keyla Dorsey PA-C [address] [place] [address] [email or web address] PCP - General Physician Medical Associate 05/20/24 Julian Duncan MD [address] [place] [phone] [email or web address] Historical LMR Provider 11/27/14 07/23/21 Champ Coombs MD [address] [place] [address] Historical LMR Provider 11/27/14 2 documented as of this encounter Additional Source Comments The information contained in this document represents components of the legal health record. It is not the complete legal health record.[facility]
--- OUTSIDE RECORDS SUMMARY | 2025-05-08 16:34 | XMS_ITS | Encounter Summary ---
Author Organization [facility] Address [address] [facility] [address] [place] [address] Phone Care Team Providers Care Medical Assistant Secretary Name Role Phone Nicola Davis MD Primary Care Provid er Keyla Dorsey PA-C Primary Care Provider [phone] Encounter Details Date Type Department Care Team (Late st Contact Info) Description 08/17/[address] [facility], Radio Flouroscopy [address] [place] [address] Social History Tobacco Use Types Packs/Day Years [...] st Contact Info) Description 05/20/2024 Procedure Pass [address] [place] [address] 05/15/2025 1:45 PM EDT Appointment [address] [place] [address] Keyla Dorsey PA-C [address] [place] [address] 06/09/2025 9:30 AM EST Procedure visit [facility] Neurology [address] [place] [address] Gelacio Thurston MD [address] [place] [address] Arnaldo Dasilva MD [address] [facility], 2nd [place] [address] documented as of this encounter Visit Diagnoses Not on filedocumented in this encounter Additional Health Concerns Infection Onset Date Last Indicated Resolved Time CoV-Risk 07/31/2024 07/31/2024 08/11/2024 1:22 AM EST CoV-Risk 08/27/2024 08/27/2024 09/07/2024 1:21 AM EST documented as of this encounter Care Teams Medical Assistant Secretary Relationship Specialty Start Date End Date Nicola Davis MD [address] [phone] PCP - General Pediatrics 10/15/17 05/19/24 Keyla Dorsey PA-C [address] [place] [address] PCP - General Physician Optical Goods Drill Operator 05/20/24 documented as of this encounter Additional Source Comments The information contained in this document represents components of the legal health record. It is not the complete legal health record.[facility]
== END 2025-05-08 15:50 | disposition home or self-care (01) ==
LOC: HO.HNS 14:51
PROVIDERS: PCP Family Medicine; Visit Provider Neurological Surgery
DX: Z98.1 Arthrodesis status (principal)
CPT/HCPCS: 99214